=== PATIENT | male | born 1965 | race Caucasian/White ===

== ENCOUNTER 2017-05-20 17:36 | Inpatient (IN) | payer MEDICARE ==
[~2017-05-20] VITALS: Ht 170.2 cm; Wt 97.0 kg
[~2017-05-20 17:36] MED LIST: ALPR0.25 PO; PEPT262C2 CHEW; PROZ40CA PO; TYLE325T PO
[2017-05-20] MEDS ORDERED: MAGNESIUM HYDROXIDE SUSP 30 ML CUP PO PRN ×2 (18:45)
[2017-05-20] MEDS ORDERED: ONDANSETRON HCL 4 MG/2 ML VIAL IVP PRN (18:45)
[2017-05-20] MEDS ORDERED: LACTULOSE SYRUP 20 GM/30 ML CUP PO PRN ×2 (18:45)
[2017-05-20] MEDS ORDERED: SENNOSIDES 8.6 MG TAB PO PRN ×2 (18:45)
[2017-05-20] MEDS ORDERED: oxyCODONE/ACETAMINOPHEN 5 MG/325 MG TAB PO PRN (18:45)
[2017-05-20] MEDS ORDERED: SODIUM CHLORIDE 0.9% FLUSH 10 ML FLUSH IV FLUSH PRN ×2 (18:45)
[2017-05-20] MEDS ORDERED: NALOXONE HCL 0.4 MG/ML AMP IV PUSH PRN ×2 (18:45)
[2017-05-20] MEDS ORDERED: MORPHINE SULFATE 4 MG/ML INJ IV PUSH PRN ×2 (18:45)
[2017-05-20] MEDS ORDERED: PROCHLORPERAZINE 25 MG SUPP RECTAL PRN (18:45)
[2017-05-20] MEDS ORDERED: BISACODYL 10 MG SUPP RECTAL PRN ×2 (18:45)
[2017-05-20] MEDS ORDERED: ACETAMINOPHEN 325 MG TAB PO PRN (18:45)
[2017-05-20 20:00] VITALS: BP 116/70; PULSE 102; RESP 18; TEMP 101.8; O2SAT 92
[2017-05-20] MEDS ORDERED: SODIUM CHLOR 0.45% 1000 ML INJ 1,000 ML IV SCH (20:00)
[2017-05-20] MEDS: SODIUM CHLORIDE 0.9% FLUSH 10 ML FLUSH IV FLUSH SCH (20:20)
[2017-05-20] MEDS: VANCOMYCIN INJ 1,000 MG in SODIUM CHLOR 0.9% 250 ML INJ 250 ML IV SCH (20:20)
[2017-05-20] MEDS: DOCUSATE SODIUM 50 MG/SENNA 8.6 MG TAB PO SCH (20:20)
[2017-05-20 20:24] VITALS: PULSE 102
[2017-05-20] MEDS ORDERED: DOCUSATE SODIUM 50 MG/SENNA 8.6 MG TAB PO SCH (21:00)
[2017-05-20] MEDS ORDERED: SODIUM CHLORIDE 0.9% FLUSH 10 ML FLUSH IV FLUSH SCH (21:00)
[2017-05-20] MEDS: ACETAMINOPHEN 325 MG TAB PO PRN (21:26)
[2017-05-20] MEDS: oxyCODONE/ACETAMINOPHEN 10 MG/325 MG TAB PO PRN (22:11)
--- NOTE | 2017-05-20 22:14 | HHI.HP ---
[facility] Phys[facility] Non-Staff Admission Diagnosis Abdominal abscess, colitis . Diagnoses: (1) Abdominal abscess (2) Irritable bowel syndrome (3) Leukocytosis (4) Transaminitis (5) Hyponatremia Chief Complaint: Abdominal pain, diarrhea Travel History International Travel<30 Days: No Contact w/Intl Traveler <30 Da: No History of Present Illness Mr. Wagner is a pleasant 52-year-old male with a past medical history of irritable bowel syndrome who presented to the emergency room in [place] on 2016 complaining of fever, nausea, and diarrhea. CT of the abdomen and pelvis showed large abscess in the right lower quadrant with associated inflammatory changes. Abnormal bowel wall thickening involving the ascending colon and distal ileum were identified. General surgery was consulted and requested transfer to the main campus for interventional radiology percutaneous drainage as well as IV antibiotic therapy. The patient is seen in his hospital room. He tells me he thought he had a "stomach bug" for the past week. He reports fevers as high as 105 accompanied by one day of chills at the beginning, nausea throughout, no vomiting, diarrhea for 7 days with 2-3 episodes today and 5-10 episodes occurring a couple of days ago. The stool is described as watery, without any bloody appearance or melena. He denies dysuria, hematuria, shortness of breath, or chest pain. He reports severe right sided abdominal pain that is currently rated 7 out of 10 and is worse with light palpation and not relieved by anything as of yet. This pain has been going on for 7 days and has gotten progressively worse. Review of Systems Except as stated in HPI: all other systems reviewed are Neg Past Family Social History Past Medical History Irritable bowel syndrome Depression Anxiety Denies any history of hypertension, diabetes mellitus, coronary artery disease, atrial fibrillation, congestive heart failure, asthma, COPD, emphysema, liver problems such as hepatitis, kidney problems, DVTs, PEs, CVAs, seizures, or thyroid problems. . Past Surgical History Cervical fusion . Reported Medications Reported Meds & Active Scripts Active Reported Pepto-Bismol (Bismuth Subsalicylate) 262 Mg Chew 524 Mg CHEW PRN Tylenol (Acetaminophen) 325 Mg Tab 325 Mg PO ONCE Alprazolam 0.25 Mg Tab 0.25 Mg PO Q4H PRN Prozac (Fluoxetine HCl) 40 Mg Cap 40 Mg PO DAILY . Allergies: Coded Allergies: No Known Allergies (Unverified , 05/20/17) Active Ordered Medications Current Medications Vancomycin HCl 1000 mg/Sodium Chloride 250 ml @ 250 mls/hr Q12H IV Last administered on 05/20/17 20:20; Start 05/20/17 at 21:00 Piperacillin Sod/ Tazobactam Sod 100 ml @ 200 mls/hr Q6H IV ; Start 05/21/17 at 00:00 Sodium Chloride (NS Flush) 2 ml UNSCH PRN IV FLUSH FLUSH AFTER USING IV ACCESS ; Start 05/20/17 at 18:45; Status UNV Sodium Chloride (NS Flush) 2 ml BID IV FLUSH ; Start 05/20/17 at 21:00; Status UNV Naloxone HCl (Narcan Inj) 0.4 mg UNSCH PRN IV PUSH SEE LABEL COMMENTS; Start 05/20/17 at 18:45 Senna/Docusate Sodium (Karo-Colace) 1 tab BID PO ; Start 05/20/17 at 21:00; Status UNV Magnesium Hydroxide (Milk Of Magnesia Liq) 30 ml Q12H PRN PO MILD - MODERATE CONSTIPATION; Start 05/20/17 at 18:45; Status UNV Sennosides (Senokot) 17.2 mg Q12H PRN PO MODERATE - SEVERE CONSTIPATION; Start 05/20/17 at 18:45; Status UNV Bisacodyl (Dulcolax Supp) 10 mg DAILY PRN RECTAL SEVERE CONSITIPATION; Start 05/20/17 at 18:45 Lactulose (Lactulose Liq) 30 ml DAILY PRN PO SEVERE CONSITIPATION; Start at 18:45 Sodium Chloride 1,000 ml @ 75 mls/hr [id number] IV Last administered on 20:20; Start 05/20/17 at 20:00 Sodium Chloride (NS Flush) 2 ml UNSCH PRN IV FLUSH FLUSH AFTER USING IV ACCESS ; Start 05/20/17 at 18:45 Sodium Chloride (NS Flush) 2 ml BID IV FLUSH Last administered on 05/20/17 20: 20; Start 05/20/17 at 21:00 Acetaminophen (Tylenol) 650 mg Q4H PRN PO TEMP > 100.4 Last administered on 21:26; Start 05/20/17 at 18:45 Ondansetron HCl (Zofran Inj) 4 mg Q6H PRN IVP NAUSEA OR VOMITING Last administered on 05/20/17 22:12; Start 05/20/17 at 18:45 Prochlorperazine (Compazine Supp) 25 mg Q12H PRN RECTAL NAUSEA OR VOMITING; Start 05/20/17 at 18:45 Acetaminophen (Tylenol) 650 mg Q6H PRN PO PAIN SCALE 1 TO 2; Start 05/20/17 at 18:45 Oxycodone/ Acetaminophen (Percocet 5-325 Mg) 1 tab Q6H PRN PO PAIN SCALE 3 TO 5; Start 05/20/17 at 18:45 Oxycodone/ Acetaminophen (Percocet 10-325 Mg) 1 tab Q6H PRN PO PAIN SCALE 6 TO 10 Last administered on 05/20/17 22:11; Start 05/20/17 at 18:45 Morphine Sulfate (Morphine Inj) 2 mg Q3H PRN IV PUSH Pain 3-5; if unable to take PO; Start 05/20/17 at 18:45 Morphine Sulfate (Morphine Inj) 4 mg Q3H PRN IV PUSH Pain 6-10;if unable to take PO; Start 05/20/17 at 18:45 Naloxone HCl (Narcan Inj) 0.4 mg UNSCH PRN IV PUSH SEE LABEL COMMENTS; Start 05/20/17 at 18:45 Senna/Docusate Sodium (Karo-Colace) 1 tab BID PO ; Start 05/20/17 at 21:00 Magnesium Hydroxide (Milk Of Magnesia Liq) 30 ml Q12H PRN PO MILD - MODERATE CONSTIPATION; Start 05/20/17 at 18:45 Sennosides (Senokot) 17.2 mg Q12H PRN PO MODERATE - SEVERE CONSTIPATION; Start 05/20/17 at 18:45 Bisacodyl (Dulcolax Supp) 10 mg DAILY PRN RECTAL SEVERE CONSITIPATION; Start 05/20/17 at 18:45; Status UNV Lactulose (Lactulose Liq) 30 ml DAILY PRN PO SEVERE CONSITIPATION; Start at 18:45; Status UNV Alprazolam (Xanax) 0.25 mg Q4H PRN PO ANXIETY; Start 05/20/17 at 19:00 Fluoxetine HCl (PROzac) 40 mg DAILY PO ; Start 05/21/17 at 09:00 Diphenhydramine HCl (Benadryl) 50 mg HS PRN PO INSOMNIA; Start 05/20/17 at 22: 15 . Family History Mother with unknown type of cancer and heart problems, age 54, father's medical history is unknown, sister named Naomi with COPD, and a maternal grandmother also with an unknown type of cancer. . Social History Tobacco: Smoked from the age of 13 or 14 until the age of 22. Alcohol: Occasional social, denies daily use Illicit Drugs: Denies . Physical Exam Vital Signs Vital Signs Date Time Temp Pulse Resp B/P (MAP) Pulse Ox O2 Delivery O2 Flow Rate FiO2 05/20/17 20:24 102 05/20/17 20:00 101.8 18 116/70 (85) 92 Physical Exam GENERAL: This is a well-nourished, well-developed patient, in no apparent distress. SKIN: No rashes, ecchymoses or lesions. Cool and dry. HEAD: Atraumatic. Normocephalic. EYES: No scleral icterus. No injection or drainage. ENT: Nose without bleeding, purulent drainage. NECK: Trachea midline. No JVD or lymphadenopathy. CARDIOVASCULAR: Regular rate and rhythm without murmurs, gallops, or rubs. RESPIRATORY: Clear to auscultation. Breath sounds equal bilaterally. No wheezes , rales, or rhonchi. GASTROINTESTINAL: Normal bowel sounds. Abdomen soft, nondistended. No guarding. Abdomen tender to right upper and lower with light palpation. MUSCULOSKELETAL: Extremities without clubbing, cyanosis, or edema. No calf tenderness. NEUROLOGICAL: Awake and alert. Motor and sensory grossly within normal limits. Normal speech. . Laboratory From [place] ER visit: Laboratory Tests Test 05/20/17 14:09 White Blood Count 17.8 TH/MM3 Red Blood Count 3.99 MIL/MM3 Hemoglobin 12.4 GM/DL Hematocrit 36.1 % Mean Corpuscular Volume 90.5 FL Mean Corpuscular Hemoglobin 31.1 PG Mean Corpuscular Hemoglobin Concent 34.3 % Red Cell Distribution Width 12.8 % Platelet Count 505 TH/MM3 Mean Platelet Volume 8.5 FL Neutrophils (%) (Auto) 77.1 % Lymphocytes (%) (Auto) 10.6 % Monocytes (%) (Auto) 10.8 % Eosinophils (%) (Auto) 0.1 % Basophils (%) (Auto) 0.2 % Neutrophils # (Auto) 13.7 TH/MM3 Lymphocytes # (Auto) 1.9 TH/MM3 Monocytes # (Auto) 1.9 TH/MM3 Eosinophils # (Auto) 0.0 TH/MM3 Basophils # (Auto) 0.0 TH/MM3 CBC Comment AUTO DIFF Differential Total Cells Counted 100 Neutrophils % (Manual) 74 % Band Neutrophils % 7 % Lymphocytes % 10 % Monocytes % 9 % Neutrophils # (Manual) 14.4 TH/MM3 Differential Comment FINAL DIFF MANUAL Toxic Granulation 1+ Dohle Bodies PRESENT Platelet Estimate HIGH Platelet Morphology Comment NORMAL Red Cell Morphology Comment NORMAL Blood Urea Nitrogen 13 MG/DL Creatinine 1.10 MG/DL Random Glucose 102 MG/DL Total Protein 8.1 GM/DL Albumin 2.8 GM/DL Calcium Level 9.0 MG/DL Alkaline Phosphatase 135 U/L Aspartate Amino Transf (AST/SGOT) 88 U/L Alanine Aminotransferase (ALT/SGPT) 152 U/L Total Bilirubin 0.5 MG/DL Sodium Level 132 MEQ/L Potassium Level 3.8 MEQ/L Chloride Level 94 MEQ/L Carbon Dioxide Level 28.0 MEQ/L Anion Gap 10 MEQ/L Estimat Glomerular Filtration Rate 70 ML/MIN Lipase 111 U/L Imaging From [place] ER visit: 05/20/17: CT of the abdomen and pelvis showed large abscess in the right lower quadrant with associated inflammatory changes. Abnormal bowel wall thickening involving the ascending colon and distal ileum were identified. . Caprini VTE Risk Assessment Caprini VTE Risk Assessment: Mod/High Risk (score >= 2) Caprini Risk Assessment Model Point Value = 1 Point Value = 2 Point Value = 3 Point Value = 5 Age 41-60 Minor surgery BMI > 25 kg/m2 Swollen legs Varicose veins or History of unexplained or recurrent spontaneous Oral contraceptives or hormone replacement Sepsis (< 1 month) Serious lung disease, including pneumonia (< 1 month) Abnormal pulmonary function Acute myocardial infarction Congestive heart failure (< 1 month) History of inflammatory bowel disease Medical patient at bed rest Age 61-74 Arthroscopic surgery Major open surgery (> 45 min) Laparoscopic surgery (> 45 min) Malignancy Confined to bed (> 72 hours) Immobilizing plaster cast Central venous access Age >= 75 History of VTE Family history of VTE Factor V Leiden Prothrombin [id number] Lupus anticoagulant Anticardiolipin antibodies Elevated serum homocysteine Heparin-induced thrombocytopenia Other congenital or acquired thrombophilia Stroke (< 1 month) Elective arthroplasty Hip, pelvis, or leg fracture Acute spinal cord injury (< 1 month) Prophylaxis Regimen Total Risk Factor Score Risk Level Prophylaxis Regimen 0-1 Low Early ambulation 2 Moderate Order ONE of the following: *Sequential Compression Device (SCD) *Heparin 5000 units SQ BID 3-4 Higher Order ONE of the following medications: *Heparin 5000 units SQ TID *Enoxaparin/Lovenox 40 mg SQ daily (WT < 150 kg, CrCl > 30 mL/min) *Enoxaparin/Lovenox 30 mg SQ daily (WT < 150 kg, CrCl > 10-29 mL/min) *Enoxaparin/Lovenox 30 mg SQ BID (WT < 150 kg, CrCl > 30 mL/min) AND/OR *Sequential Compression Device (SCD) 5 or more Highest Order ONE of the following medications: *Heparin 5000 units SQ TID (Preferred with Epidurals) *Enoxaparin/Lovenox 40 mg SQ daily (WT < 150 kg, CrCl > 30 mL/min) *Enoxaparin/Lovenox 30 mg SQ daily (WT < 150 kg, CrCl > 10-29 mL/min) *Enoxaparin/Lovenox 30 mg SQ BID (WT < 150 kg, CrCl > 30 mL/min) AND *Sequential Compression Device (SCD) Assessment and Plan Problem List: (1) Abdominal abscess ICD Code: K65.1 - Peritoneal abscess (2) Leukocytosis ICD Code: D72.829 - Elevated white blood cell count, unspecified (3) Irritable bowel syndrome ICD Code: K58.9 - Irritable bowel syndrome without diarrhea (4) Hyponatremia ICD Code: E87.1 - Hypo-osmolality and hyponatremia (5) Transaminitis ICD Code: R74.0 - Nonspecific elevation of levels of transaminase and lactic acid dehydrogenase [LDH] Assessment and Plan 52-year-old male with a history of irritable bowel syndrome who presents to the ED and [facility] a on 05/20/2017 for evaluation of abdominal pain with fever, nausea, and diarrhea and is transferred to the main hospital for management of abdominal abscess. Abdominal abscess Sepsis - Leukocytosis with bandemia secondary to infection, tachycardia, fevers History of irritable bowel syndrome - Antibiotics: Zosyn 4.5 g IV every 6 hours and vancomycin IV with pharmacy consultation for therapeutic monitoring and dosing - Consult general surgery - assistance appreciated - Consult invasive radiology department - Acetaminophen 650 mg every 4 hours by mouth when necessary fever greater than 100.4 with limit of 3000 mg per 24-hour period - Zofran 4 mg IV every 6 hours when necessary nausea or vomiting - Morphine 2-4 mg IV every 3 hours as needed for pain if unable to take by mouth - Percocet p.o. PRN pain - will check lactic acid Hyponatremia - Sodium 132 on admission with no prior labs for comparison - Replace with IV fluids normal saline at 75 cc per hour - Recheck CMP in a.m. and follow sodium level results Transaminitis - AST 88 - ALT 152 - recheck CMP in a.m. and follow results - consider hepatitis panel if persists DVT prophylaxis - SCDs/TEDs . Discussed Condition With Dr. Conte, patient, and RN Physician Certification 2 Midnight Certification Type: Admission for Inpatient Services Order for Inpatient Services The services are ordered in accordance with Medicare regulations or non- Medicare payer requirements, as applicable. In the case of services not specified as inpatient-only, they are appropriately provided as inpatient services in accordance with the 2-midnight benchmark. Estimated LOS (days): 3 days is the estimated time the patient will need to remain in the hospital, assuming treatment plan goals are met and no additional complications. Post-Hospital Plan: Home Problem Qualifiers (1) Irritable bowel syndrome: Qualified Codes: K58.0 - Irritable bowel syndrome with diarrhea (2) Leukocytosis: Qualified Codes: D72.825 - Bandemia Mirian Bearden May 20, 2017 22:14
[2017-05-20] MEDS ORDERED: diphenhydrAMINE HCL 50 MG CAP PO PRN (22:15)
[2017-05-21] VITALS (11 sets, daily range): BP systolic 94–115; BP diastolic 51–68; PULSE 69–106; RESP 16–18; TEMP 96.5–101.1; O2SAT 93–100
[2017-05-21] MEDS: SODIUM CHLOR 0.9% 1000 ML INJ 1,000 ML IV SCH ×3 (00:01→19:57)
[2017-05-21] MEDS: PIPERACIL-TAZO 4.5 GM PREMIX 100 ML IV SCH ×4 (00:01→17:21)
[2017-05-21] MEDS: ACETAMINOPHEN 325 MG TAB PO PRN (06:27)
[2017-05-21] MEDS: VANCOMYCIN INJ 1,000 MG in SODIUM CHLOR 0.9% 250 ML INJ 250 ML IV SCH ×2 (08:29→20:00)
[2017-05-21] MEDS: FLUoxetine HCL 20 MG CAP PO SCH (08:30)
[2017-05-21] MEDS: DOCUSATE SODIUM 50 MG/SENNA 8.6 MG TAB PO SCH ×2 (08:32→19:59)
[2017-05-21] MEDS: SODIUM CHLORIDE 0.9% FLUSH 10 ML FLUSH IV FLUSH SCH ×2 (08:32→19:59)
[2017-05-21 08:36] LABS: AUTOMATED NEUTROPHIL # 16.8 TH/MM3 (1.8-7.7); BASOPHIL % 0.2 % (0.0-2.0); EOSINOPHIL % 0.1 % (0.0-4.0); HEMATOCRIT 34.7 % (39.0-51.0); LYMPH % 8.7 % (9.0-44.0); LYMPHOCYTE # 1.8 TH/MM3 (1.0-4.8); MEAN CELL VOLUME 90.8 FL (80.0-100.0); MEAN CORPUSCULAR HGB CONC 34.1 % (32.0-36.0); MONO % 11.5 % (0.0-8.0); NEUT % 79.5 % (16.0-70.0); PLATELET COUNT 485 TH/MM3 (150-450); RED BLOOD COUNT 3.82 MIL/MM3 (4.50-5.90); RED CELL DISTRIBUTION WIDTH 13.2 % (11.6-17.2); WHITE BLOOD COUNT 21.1 TH/MM3 (4.0-11.0)
[2017-05-21 08:38] LABS: HEMO FLAGS AUTO DIFF
[2017-05-21 08:39] LABS: APTT (PATIENT) 31.4 SEC (24.3-30.1); INTERNATIONAL NORMALIZED RATIO 1.2 RATIO; PROTHROMBIN TIME - PATIENT 13.1 SEC (9.8-11.6)
[2017-05-21 08:51] LABS: ANION GAP 10 MEQ/L (5-15); AST (GOT) 80 U/L (15-37); BICARBONATE 24.5 MEQ/L (21.0-32.0); BLOOD UREA NITROGEN 15 MG/DL (7-18); CHLORIDE 99 MEQ/L (98-107); GLOMERULAR FILTRATION RATE 71 ML/MIN (>89); MAGNESIUM 2.6 MG/DL (1.5-2.5); POTASSIUM 3.4 MEQ/L (3.5-5.1); SODIUM (NA) 133 MEQ/L (136-145)
[2017-05-21 08:52] LABS: ALT (GPT) 146 U/L (12-78)
[2017-05-21 09:00] LABS: ALKALINE PHOSPHATASE 135 U/L (45-117); FREE T4 1.61 NG/DL (0.76-1.46); TOTAL BILIRUBIN ADULT 0.7 MG/DL (0.2-1.0)
[2017-05-21 09:09] LABS: DOHLE BODIES PRESENT (NONE SEEN); PLATELET ESTIMATE SMEAR HIGH (NORMAL); PLATELET MORPHOLOGY NORMAL (NORMAL); SCAN/DIFF AUTO DIFF CONFIRMED
[2017-05-21 10:06] LABS: HEMOGLOBIN A1b 1.8 %; HEMOGLOBIN Ao 85.1 %; HEMOGLOBIN LA1C 2.1 %; HEMOGLOBIN P3 3.9 %
--- NOTE | 2017-05-21 11:00 | PD.CONS ---
cc: Alan Hankins MD HPI Service General Surgery Consult Requested By Mirian GIPSON Reason for Consult Intra abdominal abscess Primary Care Physician Non-Staff History of Present Illness This is a 52 year old male with a past medical history of irritable bowel syndrome, depression and anxiety. The patient developed "flu-like" symptoms including nausea, vomiting, diarrhea, chills and fevers for seven days. The patient's temperature max at home was 105. The patient does report associated RLQ pain. The patient denies any sick contract. The patient denies any recent travel. The patient presented to the [facility] ED and a CT abdomen/pelvis was completed. The patient was found to have RLQ inflammatory changes and an intra- abdominal abscess; likely related to perforated appendicitis. A General Surgery consultation has been requested for evaluation of intra-abdominal abscess. Review of Systems Constitutional: COMPLAINS OF: Diaphoretic episodes, Fever, Chills, Change in appetite Endocrine: DENIES: Polydipsia, Polyuria, Polyphagia Eyes: DENIES: Diplopia Respiratory: DENIES: Apneas, Cough Cardiovascular: DENIES: Chest pain Gastrointestinal: COMPLAINS OF: Abdominal pain, Diarrhea, Nausea, Vomiting Genitourinary: DENIES: Urgency Musculoskeletal: DENIES: Stiffness Integumentary: DENIES: Abnormal pigmentation Hematologic/lymphatic: DENIES: Bruising Immunologic/allergic: DENIES: Eczema Neurologic: DENIES: Abnormal gait, Headache Psychiatric: DENIES: Confusion, Mood changes, Depression Past Family Social History Past Medical History Irritable bowel syndrome Anxiety Depression Past Surgical History Cervical fusion Allergies: Coded Allergies: No Known Allergies (Unverified , 05/20/17) Active Ordered Medications Current Medications Medications (Trade) Dose Ordered Sig/Ricardo Route Start Time Stop Time Status Last Admin Vancomycin HCl 1000 mg/Sodium Chloride 250 ml @ 250 mls/hr Q12H IV 05/20/17 21:00 05/21/17 08:29 Piperacillin Sod/ Tazobactam Sod 100 ml @ 200 mls/hr Q6H IV 05/21/17 00:00 05/21/17 05:38 (Narcan Inj) 0.4 mg UNSCH PRN IV PUSH 05/20/17 18:45 (Dulcolax Supp) 10 mg DAILY PRN RECTAL 05/20/17 18:45 (Lactulose Liq) 30 ml DAILY PRN PO 05/20/17 18:45 (NS Flush) 2 ml UNSCH PRN IV FLUSH 05/20/17 18:45 (NS Flush) 2 ml BID IV FLUSH 05/20/17 21:00 05/20/17 20:20 (Tylenol) 650 mg Q4H PRN PO 05/20/17 18:45 05/21/17 06:27 (Zofran Inj) 4 mg Q6H PRN IVP 05/20/17 18:45 05/20/17 22:12 (Compazine Supp) 25 mg Q12H PRN RECTAL 05/20/17 18:45 (Tylenol) 650 mg Q6H PRN PO 05/20/17 18:45 (Percocet 5-325 Mg) 1 tab Q6H PRN PO 05/20/17 18:45 (Percocet 10-325 Mg) 1 tab Q6H PRN PO 05/20/17 18:45 05/20/17 22:11 (Morphine Inj) 2 mg Q3H PRN IV PUSH 05/20/17 18:45 (Morphine Inj) 4 mg Q3H PRN IV PUSH 05/20/17 18:45 (Narcan Inj) 0.4 mg UNSCH PRN IV PUSH 05/20/17 18:45 (Karo-Colace) 1 tab BID PO 05/20/17 21:00 (Milk Of Magnesia Liq) 30 ml Q12H PRN PO 05/20/17 18:45 (Senokot) 17.2 mg Q12H PRN PO 05/20/17 18:45 (Xanax) 0.25 mg Q4H PRN PO 05/20/17 19:00 (PROzac) 40 mg DAILY PO 05/21/17 09:00 05/21/17 08:30 (Benadryl) 50 mg HS PRN PO 05/20/17 22:15 Sodium Chloride 1,000 ml @ 75 mls/hr [id number] IV 05/20/17 23:30 05/21/17 00:01 Family History Non contributory Social History Denies current tobacco use + ETOH use; socially; not daily Denies illicit drug use Physical Exam Vital Signs Vital Signs Date Time Temp Pulse Resp B/P (MAP) Pulse Ox O2 Delivery O2 Flow Rate FiO2 05/21/17 08:00 99.7 91 18 94/63 (73) 93 05/21/17 07:40 106 05/21/17 04:38 101.1 103 18 115/59 (77) 95 05/21/17 00:32 99.3 86 18 97/51 (66) 94 05/20/17 20:24 102 05/20/17 20:00 101.8 102 18 116/70 (85) 92 Physical Exam GENERAL: Pleasant 52 year old male resting in bed in no acute distress. SKIN: Warm and dry. HEAD: Atraumatic. Normocephalic. EYES: Pupils equal and round. No scleral icterus. No injection or drainage. ENT: No nasal bleeding or discharge. Mucous membranes pink and moist. NECK: Trachea midline. CARDIOVASCULAR: Regular rate and rhythm. RESPIRATORY: No accessory muscle use. Clear to auscultation. Breath sounds equal bilaterally. GASTROINTESTINAL: Abdomen soft, nondistended. Tenderness with palpation in RLQ. No visible scars or hernias on abdomen. MUSCULOSKELETAL: Extremities without clubbing, cyanosis, or edema. No obvious deformities. NEUROLOGICAL: Awake and alert. No obvious cranial nerve deficits. Motor grossly within normal limits. Five out of 5 muscle strength in the arms and legs. Normal speech. PSYCHIATRIC: Appropriate mood and affect; insight and judgment normal. Laboratory Laboratory Tests Test 05/21/17 07:54 White Blood Count 21.1 Red Blood Count 3.82 Hemoglobin 11.8 Hematocrit 34.7 Mean Corpuscular Volume 90.8 Mean Corpuscular Hemoglobin 31.0 Mean Corpuscular Hemoglobin Concent 34.1 Red Cell Distribution Width 13.2 Platelet Count 485 Mean Platelet Volume 6.7 Neutrophils (%) (Auto) 79.5 Lymphocytes (%) (Auto) 8.7 Monocytes (%) (Auto) 11.5 Eosinophils (%) (Auto) 0.1 Basophils (%) (Auto) 0.2 Neutrophils # (Auto) 16.8 Lymphocytes # (Auto) 1.8 Monocytes # (Auto) 2.4 Eosinophils # (Auto) 0.0 Basophils # (Auto) 0.0 CBC Comment AUTO DIFF Differential Comment AUTO DIFF CONFIRMED Dohle Bodies PRESENT Platelet Estimate HIGH Platelet Morphology Comment NORMAL Red Cell Morphology Comment NORMAL Prothrombin Time 13.1 Prothromb Time International Ratio 1.2 Activated Partial Thromboplast Time 31.4 Blood Urea Nitrogen 15 Creatinine 1.08 Random Glucose 99 Total Protein 7.4 Albumin 2.6 Calcium Level 8.7 Phosphorus Level 3.9 Magnesium Level 2.6 Alkaline Phosphatase 135 Aspartate Amino Transf (AST/SGOT) 80 Alanine Aminotransferase (ALT/SGPT) 146 Total Bilirubin 0.7 Sodium Level 133 Potassium Level 3.4 Chloride Level 99 Carbon Dioxide Level 24.5 Anion Gap 10 Estimat Glomerular Filtration Rate 71 Hemoglobin A1c 5.5 Free Thyroxine 1.61 Thyroid Stimulating Hormone 3rd Gen 1.190 Result Diagram: 05/21/17 0754 05/21/17 0754 Assessment and Plan Assessment and Plan 52 year old male with intra-abdominal abscess; ?? related to perforated appendicitis -Plan for IR drainage today -NPO; start clears after procedure -Monitor WBC/Fevers -Continue Zosyn -IVF -Will likely need interval appendectomy; timing to be determined -Thank you for this consult; We will continue to follow Discussed Condition With Dr. Hankins Julissa Wagner Attending Statement I personally evaluated this patient this evening. I saw his drain which has been placed and is draining light brown purulent drainage. I discussed his condition and plans for care in detail. Acutely abx and drainage are indicated. The differential of perforated appendicitis, diverticulitis, and tumor perforation were discussed. He has never had a colonoscopy and should have this done prior to any surgery, to evaluate for etiology outside of appendicitis. He and his agree. We will follow along peripherally. The exam, history, and the medical decision-making described in the above note were completed with the assistance of the mid-level provider. I reviewed and agree with the findings presented. I attest that I had a [id number] encounter with the patient on the same day, and personally performed and documented my assessment and findings in the medical record. Alena Hurtado May 21, 2017 11:00 Alan Hankins MD May 21, 2017 18:09
[2017-05-21] MEDS ORDERED: MIDAZOLAM HCL 5 MG/5 ML VIAL ONE (13:24)
[2017-05-21] MEDS ORDERED: LIDOCAINE HCL 1% 20 ML VIAL ONE (13:30)
--- NOTE | 2017-05-21 15:37 | PD.RAD ---
Post CT Procedure Prog Note Pre Procedure Diagnosis: (1) Abdominal abscess Post Procedure Diagnosis: (1) Abdominal abscess Procedure Date: May 21, 2017 Supervising Radiologist: Andrade Breaux Proceduralist/Assist: lizzie lino Estimated blood loss: none Anesthesia: Conscious Sedation Plan of Activity Patient to Unit: [facility] Patient Condition: Good See PACS Report for procedural detail/treatment Andrade Breaux MD May 21, 2017 15:36
--- NOTE | 2017-05-21 16:07 | RADRPT ---
EXAM DATE/TIME: 05/21/2017 14:54 [facility] COMPARISON: No previous studies available for comparison. INDICATIONS : Abdominal abscess. SEDATION TIME: 30 MEDICATION(S): 1.) 5 mg midazolam (Versed) IV 2.) 250 mcg fentanyl (Sublimaze) IV DEVICE(S): 1.) 14 Fr catheter FLUID: Total volume of 20 cc of cloudy, yellow fluid was removed. Fluid was discarded. MEDICAL HISTORY : Irritable bowel syndrome. SURGICAL HISTORY : neck. ENCOUNTER: Initial ACUITY: 1 day PAIN SCORE: 0/10 LOCATION: Right lower quadrant PROCEDURE: 1.) Conscious sedation with continuous EKG and oximetry monitoring. 2.) EKG and oximetry remained stable throughout the procedure. PROCEDURE : 1. CT guided drainage of the right lower quadrant 2. Conscious sedation with continuous EKG and oximetry monitoring. The risks, benefits and alternatives to the procedure were explained and verbal and written consent w as obtained. Using automated exposure control and adjustment of the mA and/or kV according to patient size, radiation dose was kept as low as reasonably achievable to obtain optimal diagnostic quality i mages. The site was prepped in sterile fashion. Full sterile technique was used, including cap, ma sk, sterile gloves and gown and a large sterile sheet. Hand hygiene and 2% chlorhexidine and/or beta dine/alcohol prep was utilized per protocol for cutaneous antisepsis. The skin and subcutaneous tiss ues were infiltrated with local anesthetic solution. DICOM format image data is available electronic ally for review and comparison. Using CT guidance the prescribed site was localized. Drainage was performed using the prescribed cat heter The patient tolerated the procedure well and there were no complications. Conscious sedation was per formed with the prescribed dosages and duration as above in the presence of an independent trained ra diology nurse to assist in the monitoring of the patient. EKG and oximetry remained stable throughou t the procedure. The patient tolerated the procedure well and there were no complications. The patient was sent to pos t anesthesia recovery in stable condition. CONCLUSION: Uncomplicated CT guided drainage of the abscess which appears to have decreased in size. 14 Wolof ca theter placed. There is extensive inflammation and possibility of appendicitis remains high in the di fferential. Andrade Breaux MD on May 21, 2017 at 16:00 Board Certified Radiologist. This report was verified electronically.
--- NOTE | 2017-05-21 17:54 | HHI.PR ---
Subjective Remarks Mr. Wagner is a pleasant 52-year-old male with a past medical history of irritable bowel syndrome who presented to the emergency room in [place] on 2016 complaining of fever, nausea, and diarrhea. CT of the abdomen and pelvis showed large abscess in the right lower quadrant with associated inflammatory changes. Abnormal bowel wall thickening involving the ascending colon and distal ileum were identified. General surgery was consulted and requested transfer to the main campus for interventional radiology percutaneous drainage as well as IV antibiotic therapy. The patient is seen in his hospital room. He tells me he thought he had a "stomach bug" for the past week. He reports fevers as high as 105 accompanied by one day of chills at the beginning, nausea throughout, no vomiting, diarrhea for 7 days with 2-3 episodes today and 5-10 episodes occurring a couple of days ago. The stool is described as watery, without any bloody appearance or melena. He denies dysuria, hematuria, shortness of breath, or chest pain. He reports severe right sided abdominal pain that is currently rated 7 out of 10 and is worse with light palpation and not relieved by anything as of yet. This pain has been going on for 7 days and has gotten progressively worse. 10-9 SEEN BY GENERAL SURGERY WELL INTERVENTIONAL RADIOLOGY DRAIN PLACED TODAY BY IR Objective Vitals Vital Signs Date Time Temp Pulse Resp B/P (MAP) Pulse Ox O2 Delivery O2 Flow Rate FiO2 05/21/17 17:00 96.5 83 17 97/61 (73) 96 05/21/17 16:15 83 16 115/68 (84) 93 05/21/17 16:00 78 16 98/64 (75) 94 05/21/17 15:45 98.0 77 16 104/67 (79) 94 05/21/17 12:00 98.3 72 17 101/64 (76) 96 05/21/17 08:00 99.7 91 18 94/63 (73) 93 05/21/17 07:40 106 05/21/17 04:38 101.1 103 18 115/59 (77) 95 05/21/17 00:32 99.3 86 18 97/51 (66) 94 05/20/17 20:24 102 05/20/17 20:00 101.8 102 18 116/70 (85) 92 I/O 1005/20/17 05/20/17 05/21/17 05/21/17 05/21/17 07:00 15:00 23:00 07:00 15:00 23:00 Intake Total 1125 ml 350 ml 459 ml Balance 1125 ml 350 ml 459 ml Intake IV Total 1125 ml 350 ml 459 ml # Voids 4 # Bowel Movements 2 Result Diagram: 05/21/17 0754 05/21/17 0754 Other Results Laboratory Tests Test 05/21/17 07:54 White Blood Count 21.1 TH/MM3 Red Blood Count 3.82 MIL/MM3 Hemoglobin 11.8 GM/DL Hematocrit 34.7 % Mean Corpuscular Volume 90.8 FL Mean Corpuscular Hemoglobin 31.0 PG Mean Corpuscular Hemoglobin Concent 34.1 % Red Cell Distribution Width 13.2 % Platelet Count 485 TH/MM3 Mean Platelet Volume 6.7 FL Neutrophils (%) (Auto) 79.5 % Lymphocytes (%) (Auto) 8.7 % Monocytes (%) (Auto) 11.5 % Eosinophils (%) (Auto) 0.1 % Basophils (%) (Auto) 0.2 % Neutrophils # (Auto) 16.8 TH/MM3 Lymphocytes # (Auto) 1.8 TH/MM3 Monocytes # (Auto) 2.4 TH/MM3 Eosinophils # (Auto) 0.0 TH/MM3 Basophils # (Auto) 0.0 TH/MM3 CBC Comment AUTO DIFF Differential Comment AUTO DIFF CONFIRMED Dohle Bodies PRESENT Platelet Estimate HIGH Platelet Morphology Comment NORMAL Red Cell Morphology Comment NORMAL Prothrombin Time 13.1 SEC Prothromb Time International Ratio 1.2 RATIO Activated Partial Thromboplast Time 31.4 SEC Blood Urea Nitrogen 15 MG/DL Creatinine 1.08 MG/DL Random Glucose 99 MG/DL Total Protein 7.4 GM/DL Albumin 2.6 GM/DL Calcium Level 8.7 MG/DL Phosphorus Level 3.9 MG/DL Magnesium Level 2.6 MG/DL Alkaline Phosphatase 135 U/L Aspartate Amino Transf (AST/SGOT) 80 U/L Alanine Aminotransferase (ALT/SGPT) 146 U/L Total Bilirubin 0.7 MG/DL Sodium Level 133 MEQ/L Potassium Level 3.4 MEQ/L Chloride Level 99 MEQ/L Carbon Dioxide Level 24.5 MEQ/L Anion Gap 10 MEQ/L Estimat Glomerular Filtration Rate 71 ML/MIN Hemoglobin A1c 5.5 % Free Thyroxine 1.61 NG/DL Thyroid Stimulating Hormone 3rd Gen 1.190 uIU/ML Imaging Last 72 hours Impressions Abscess Drainage CT 05/21/17 0000 Signed Impressions: Service Date/Time: Sunday, May 21, 2017 14:54 - CONCLUSION: Uncomplicated CT guided drainage of the abscess which appears to have decreased in size. 14 Bengali catheter placed. There is extensive inflammation and possibility of appendicitis remains high in the differential. Andrade Breaux MD CT Abd/Pel W IV Contrast(Rout) Signed EXAM DATE/TIME: 05/20/2017 16:14 [facility] COMPARISON: No previous studies available for comparison. INDICATIONS : Lower right abdomen pain. IV CONTRAST: 96 cc Omnipaque 350 (iohexol) IV ORAL CONTRAST: Prescribed oral contrast ingested. RADIATION DOSE: 9.07 CTDIvol (mGy) MEDICAL HISTORY : None SURGICAL HISTORY : Fusion, cervical. ENCOUNTER: Initial ACUITY: 1 day PAIN SCALE: 6/10 LOCATION: Right flank TECHNIQUE: Volumetric scanning of the abdomen and pelvis was performed. Using automated exposure control and adjustment of the mA and/or kV according to patient size, radiation dose was kept as low as reasonably achievable to obtain optimal diagnostic quality images. DICOM format image data is available electronically for review and comparison. FINDINGS: The spleen, pancreas, liver, gallbladder, urinary bladder and prostate are unremarkable. There is diverticulosis of the sigmoid colon. There is circumferential bowel wall thickening involving the proximal transverse colon, and ascending colon. The cecum demonstrates marked circumferential wall thickening, and there is abnormal circumferential bowel wall thickening of the terminal ileum identified. There is significant adjacent inflammatory stranding. In the right lower quadrant, is a irregular rim-enhancing air and fluid collection best seen on axial image 67 measuring 10.5 x 7.1 cm in transverse and AP and characteristic of an abscess. There are a few subcentimeter lymph nodes in this region. A normal-appearing appendix is not visualized. Given the location, the most likely diagnosis would be perforated appendicitis with abscess formation. Abscess formation related to enteritis in the setting of inflammatory bowel disease or colitis are also differential diagnostic considerations. Lung bases are clear. The osseous structures are intact. CONCLUSION: 1. There is a large abscess in the right lower quadrant with associated inflammatory changes. Abnormal bowel wall thickening involving the ascending colon and distal ileum identified. Perforated appendicitis, or bowel perforation with abscess formation the setting of enteritis or colitis given the regional bowel inflammatory changes are differential diagnostic considerations. Objective Remarks GENERAL: This is a well-nourished, well-developed patient, in no apparent distress. SKIN: No rashes, ecchymoses or lesions. Cool and dry. HEAD: Atraumatic. Normocephalic. EYES: No scleral icterus. No injection or drainage. Extraocular muscles intact ENT: Nose without bleeding, purulent drainage. Tongue is midline or mucosa is moist NECK: Trachea midline. No JVD or lymphadenopathy. Supple CARDIOVASCULAR: Regular rate and rhythm without murmurs, gallops, or rubs. S1- S2 no S3 or S4 no heave or thrill or rub RESPIRATORY: Clear to auscultation. Breath sounds equal bilaterally. No wheezes , rales, or rhonchi. GASTROINTESTINAL: Normal bowel sounds. Abdomen soft, nondistended. No guarding. Abdomen tender to right upper and lower with light palpation. Has pain in the right lower quadrant has to drain in place MUSCULOSKELETAL: Extremities without clubbing, cyanosis, or edema. No calf tenderness. NEUROLOGICAL: Awake and alert. Motor and sensory grossly within normal limits. Normal speech. Insight and judgment is good; mood and behaviors appropriate . Procedures CT Assisted Abscess Drain Signed EXAM DATE/TIME: 05/21/2017 14:54 [facility] COMPARISON: No previous studies available for comparison. INDICATIONS : Abdominal abscess. SEDATION TIME: 30 MEDICATION(S): 1.) 5 mg midazolam (Versed) IV 2.) 250 mcg fentanyl (Sublimaze) IV DEVICE(S): 1.) 14 Fr catheter FLUID: Total volume of 20 cc of cloudy, yellow fluid was removed. Fluid was discarded. MEDICAL HISTORY : Irritable bowel syndrome. SURGICAL HISTORY : neck. ENCOUNTER: Initial ACUITY: 1 day PAIN SCORE: 0/10 LOCATION: Right lower quadrant PROCEDURE: 1.) Conscious sedation with continuous EKG and oximetry monitoring. 2.) EKG and oximetry remained stable throughout the procedure. PROCEDURE : 1. CT guided drainage of the right lower quadrant 2. Conscious sedation with continuous EKG and oximetry monitoring. The risks, benefits and alternatives to the procedure were explained and verbal and written consent was obtained. Using automated exposure control and adjustment of the mA and/or kV according to patient size, radiation dose was kept as low as reasonably achievable to obtain optimal diagnostic quality images. The site was prepped in sterile fashion. Full sterile technique was used, including cap, mask, sterile gloves and gown and a large sterile sheet. Hand hygiene and 2% chlorhexidine and/or betadine/alcohol prep was utilized per protocol for cutaneous antisepsis. The skin and subcutaneous tissues were infiltrated with local anesthetic solution. DICOM format image data is available electronically for review and comparison. Using CT guidance the prescribed site was localized. Drainage was performed using the prescribed catheter The patient tolerated the procedure well and there were no complications. Conscious sedation was performed with the prescribed dosages and duration as above in the presence of an independent trained radiology nurse to assist in the monitoring of the patient. EKG and oximetry remained stable throughout the procedure. The patient tolerated the procedure well and there were no complications. The patient was sent to post anesthesia recovery in stable condition. CONCLUSION: Uncomplicated CT guided drainage of the abscess which appears to have decreased in size. 14 Bengali catheter placed. There is extensive inflammation and possibility of appendicitis remains high in the differential. Andrade Breaux MD on May 21, 2017 at 16:00 Board Certified Radiologist. This report was verified electronically. Medications and IVs Current Medications Vancomycin HCl 1000 mg/Sodium Chloride 250 ml @ 250 mls/hr Q12H IV Last administered on 05/21/17 08:29; Start 05/20/17 at 21:00 Piperacillin Sod/ Tazobactam Sod 100 ml @ 200 mls/hr Q6H IV Last administered on 05/21/17 17:21; Start 05/21/17 at 00:00 Sodium Chloride (NS Flush) 2 ml UNSCH PRN IV FLUSH FLUSH AFTER USING IV ACCESS ; Start 05/20/17 at 18:45; Status UNV Sodium Chloride (NS Flush) 2 ml BID IV FLUSH ; Start 05/20/17 at 21:00; Status UNV Naloxone HCl (Narcan Inj) 0.4 mg UNSCH PRN IV PUSH SEE LABEL COMMENTS; Start 05/20/17 at 18:45 Senna/Docusate Sodium (Karo-Colace) 1 tab BID PO ; Start 05/20/17 at 21:00; Status UNV Magnesium Hydroxide (Milk Of Magnesia Liq) 30 ml Q12H PRN PO MILD - MODERATE CONSTIPATION; Start 05/20/17 at 18:45; Status UNV Sennosides (Senokot) 17.2 mg Q12H PRN PO MODERATE - SEVERE CONSTIPATION; Start 05/20/17 at 18:45; Status UNV Bisacodyl (Dulcolax Supp) 10 mg DAILY PRN RECTAL SEVERE CONSITIPATION; Start 05/20/17 at 18:45 Lactulose (Lactulose Liq) 30 ml DAILY PRN PO SEVERE CONSITIPATION; Start at 18:45 Sodium Chloride 1,000 ml @ 75 mls/hr [id number] IV Last administered on 20:20; Start 05/20/17 at 20:00; Stop 05/20/17 at 23:36; Status DC Sodium Chloride (NS Flush) 2 ml UNSCH PRN IV FLUSH FLUSH AFTER USING IV ACCESS ; Start 05/20/17 at 18:45 Sodium Chloride (NS Flush) 2 ml BID IV FLUSH Last administered on 05/20/17 20: 20; Start 05/20/17 at 21:00 Acetaminophen (Tylenol) 650 mg Q4H PRN PO TEMP > 100.4 Last administered on 06:27; Start 05/20/17 at 18:45 Ondansetron HCl (Zofran Inj) 4 mg Q6H PRN IVP NAUSEA OR VOMITING Last administered on 05/20/17 22:12; Start 05/20/17 at 18:45 Prochlorperazine (Compazine Supp) 25 mg Q12H PRN RECTAL NAUSEA OR VOMITING; Start 05/20/17 at 18:45 Acetaminophen (Tylenol) 650 mg Q6H PRN PO PAIN SCALE 1 TO 2; Start 05/20/17 at 18:45 Oxycodone/ Acetaminophen (Percocet 5-325 Mg) 1 tab Q6H PRN PO PAIN SCALE 3 TO 5; Start 05/20/17 at 18:45 Oxycodone/ Acetaminophen (Percocet 10-325 Mg) 1 tab Q6H PRN PO PAIN SCALE 6 TO 10 Last administered on 05/20/17 22:11; Start 05/20/17 at 18:45 Morphine Sulfate (Morphine Inj) 2 mg Q3H PRN IV PUSH Pain 3-5; if unable to take PO; Start 05/20/17 at 18:45 Morphine Sulfate (Morphine Inj) 4 mg Q3H PRN IV PUSH Pain 6-10;if unable to take PO; Start 05/20/17 at 18:45 Naloxone HCl (Narcan Inj) 0.4 mg UNSCH PRN IV PUSH SEE LABEL COMMENTS; Start 05/20/17 at 18:45 Senna/Docusate Sodium (Karo-Colace) 1 tab BID PO ; Start 05/20/17 at 21:00 Magnesium Hydroxide (Milk Of Magnesia Liq) 30 ml Q12H PRN PO MILD - MODERATE CONSTIPATION; Start 05/20/17 at 18:45 Sennosides (Senokot) 17.2 mg Q12H PRN PO MODERATE - SEVERE CONSTIPATION; Start 05/20/17 at 18:45 Bisacodyl (Dulcolax Supp) 10 mg DAILY PRN RECTAL SEVERE CONSITIPATION; Start 05/20/17 at 18:45; Status UNV Lactulose (Lactulose Liq) 30 ml DAILY PRN PO SEVERE CONSITIPATION; Start at 18:45; Status UNV Alprazolam (Xanax) 0.25 mg Q4H PRN PO ANXIETY; Start 05/20/17 at 19:00 Fluoxetine HCl (PROzac) 40 mg DAILY PO Last administered on 05/21/17 08:30; Start 05/21/17 at 09:00 Diphenhydramine HCl (Benadryl) 50 mg HS PRN PO INSOMNIA; Start 05/20/17 at 22: 15 Sodium Chloride 1,000 ml @ 75 mls/hr [id number] IV Last administered on 00:01; Start 05/20/17 at 23:30 Fentanyl Citrate (fentaNYL INJ) 200 mcg STK-MED ONCE .ROUTE Last administered on 05/21/17 14:50; Start 05/21/17 at 13:24; Stop 05/21/17 at 13:25; Status DC Midazolam HCl (Versed Inj) 5 mg STK-MED ONCE .ROUTE Last administered on 14:50; Start 05/21/17 at 13:24; Stop 05/21/17 at 13:25; Status DC Lidocaine HCl (Xylocaine 1% Inj) 20 ml STK-MED ONCE .ROUTE ; Start 05/21/17 at 13:30; Stop 05/21/17 at 13:31; Status DC Fentanyl Citrate (fentaNYL INJ) 100 mcg STK-MED ONCE .ROUTE Last administered on 05/21/17t 15:20; Start 05/21/17 at 15:20; Stop 05/21/17 at 15:21; Status DC Sodium Chloride (NS Inj) 10 ml BID IRRIGATION ; Start 05/21/17 at 21:00 Urinary Catheter: No Vascular Central Line Catheter: No A/P Problem List: (1) Abdominal abscess ICD Code: K65.1 - Peritoneal abscess (2) Leukocytosis ICD Code: D72.829 - Elevated white blood cell count, unspecified (3) Irritable bowel syndrome ICD Code: K58.9 - Irritable bowel syndrome without diarrhea (4) Hyponatremia ICD Code: E87.1 - Hypo-osmolality and hyponatremia (5) Transaminitis ICD Code: R74.0 - Nonspecific elevation of levels of transaminase and lactic acid dehydrogenase [LDH] Assessment and Plan 52-year-old male with a history of irritable bowel syndrome who presents to the ED and [facility] on 05/20/2017 for evaluation of abdominal pain with fever, nausea, and diarrhea and is transferred to the main hospital for management of abdominal abscess. Abdominal abscess Sepsis - Leukocytosis with bandemia secondary to infection, tachycardia, fevers History of irritable bowel syndrome - Antibiotics: Zosyn 4.5 g IV every 6 hours and vancomycin IV with pharmacy consultation for therapeutic monitoring and dosing - Consult general surgery - assistance appreciated - Consult invasive radiology department had drain placed by them today - Acetaminophen 650 mg every 4 hours by mouth when necessary fever greater than 100.4 with limit of 3000 mg per 24-hour period - Zofran 4 mg IV every 6 hours when necessary nausea or vomiting - Morphine 2-4 mg IV every 3 hours as needed for pain if unable to take by mouth - Percocet p.o. PRN pain - will check lactic acid Had drain placed in right lower quadrant by interventional radiology today May 21 Hyponatremia - Sodium 132 on admission with no prior labs for comparison - Replace with IV fluids normal saline at 75 cc per hour - Recheck CMP in a.m. and follow sodium level results Transaminitis - AST 88 - ALT 152 - recheck CMP in a.m. and follow results - consider hepatitis panel if persists Hypokalemia Will replace DVT prophylaxis - SCDs/TEDs . Discussed with patient and RN and significant other Discharge Planning Continue current antibiotics and drain Pain control Diet Has been advanced to clear liquids per surgery Problem Qualifiers (1) Leukocytosis: Qualified Codes: D72.825 - Bandemia (2) Irritable bowel syndrome: Qualified Codes: K58.0 - Irritable bowel syndrome with diarrhea Yuri Watson DO May 21, 2017 17:54
[2017-05-21] MEDS: oxyCODONE/ACETAMINOPHEN 10 MG/325 MG TAB PO PRN (18:02)
[2017-05-21] MEDS: POTASSIUM CHLORIDE 10 MEQ CONTROLLED RELEASE TAB PO SCH (18:31)
[2017-05-21] MEDS: SODIUM CHLORIDE 0.9% 10 ML VIAL IRRIGATION SCH ×2 (20:02→22:00)
[2017-05-22] VITALS (8 sets, daily range): BP systolic 101–124; BP diastolic 59–71; PULSE 68–89; RESP 16–18; TEMP 96.8–97.8; O2SAT 95–98
[2017-05-22] MEDS: oxyCODONE/ACETAMINOPHEN 10 MG/325 MG TAB PO PRN ×3 (00:16→23:01)
[2017-05-22] MEDS: ALPRAZolam 0.25 MG TAB PO PRN (00:24)
[2017-05-22] MEDS: PIPERACIL-TAZO 4.5 GM PREMIX 100 ML IV SCH ×4 (00:25→17:05)
[2017-05-22 07:40] LABS: AUTOMATED NEUTROPHIL # 9.4 TH/MM3 (1.8-7.7); BASOPHIL % 0.2 % (0.0-2.0); EOSINOPHIL # 0.1 TH/MM3 (0-0.4); EOSINOPHIL % 0.7 % (0.0-4.0); HEMATOCRIT 33.8 % (39.0-51.0); HEMO FLAGS DIFF FINAL; LYMPH % 15.9 % (9.0-44.0); MEAN CELL VOLUME 92.1 FL (80.0-100.0); MEAN CORPUSCULAR HEMOGLOBIN 31.2 PG (27.0-34.0); MEAN CORPUSCULAR HGB CONC 33.8 % (32.0-36.0); MONO % 7.4 % (0.0-8.0); NEUT % 75.8 % (16.0-70.0); PLATELET COUNT 504 TH/MM3 (150-450); RED BLOOD COUNT 3.67 MIL/MM3 (4.50-5.90); RED CELL DISTRIBUTION WIDTH 13.5 % (11.6-17.2); WHITE BLOOD COUNT 12.5 TH/MM3 (4.0-11.0)
[2017-05-22 08:00] LABS: ANION GAP 9 MEQ/L (5-15); AST (GOT) 49 U/L (15-37); BICARBONATE 25.6 MEQ/L (21.0-32.0); BLOOD UREA NITROGEN 12 MG/DL (7-18); CHLORIDE 104 MEQ/L (98-107); GLOMERULAR FILTRATION RATE 93 ML/MIN (>89); MAGNESIUM 2.6 MG/DL (1.5-2.5); POTASSIUM 3.8 MEQ/L (3.5-5.1); SODIUM (NA) 139 MEQ/L (136-145)
[2017-05-22 08:02] LABS: ALT (GPT) 112 U/L (12-78)
[2017-05-22 08:05] LABS: ALKALINE PHOSPHATASE 129 U/L (45-117); TOTAL BILIRUBIN ADULT 0.3 MG/DL (0.2-1.0)
--- NOTE | 2017-05-22 08:27 | HHI.PR ---
Subjective Subjective Notes slept off and on, rested some. Hungry. Voiding on own. Objective Vitals/I&O Vital Signs Date Time Temp Pulse Resp B/P (MAP) Pulse Ox O2 Delivery O2 Flow Rate FiO2 05/22/17 04:54 96.8 78 18 101/63 (76) 95 Labs Laboratory Tests Test 05/22/17 06:08 White Blood Count 12.5 Red Blood Count 3.67 Hemoglobin 11.4 Hematocrit 33.8 Mean Corpuscular Volume 92.1 Mean Corpuscular Hemoglobin 31.2 Mean Corpuscular Hemoglobin Concent 33.8 Red Cell Distribution Width 13.5 Platelet Count 504 Mean Platelet Volume 6.9 Neutrophils (%) (Auto) 75.8 Lymphocytes (%) (Auto) 15.9 Monocytes (%) (Auto) 7.4 Eosinophils (%) (Auto) 0.7 Basophils (%) (Auto) 0.2 Neutrophils # (Auto) 9.4 Lymphocytes # (Auto) 2.0 Monocytes # (Auto) 0.9 Eosinophils # (Auto) 0.1 Basophils # (Auto) 0.0 CBC Comment DIFF FINAL Differential Comment Blood Urea Nitrogen 12 Creatinine 0.86 Random Glucose 83 Total Protein 6.8 Albumin 2.3 Calcium Level 8.4 Phosphorus Level 2.9 Magnesium Level 2.6 Alkaline Phosphatase 129 Aspartate Amino Transf (AST/SGOT) 49 Alanine Aminotransferase (ALT/SGPT) 112 Total Bilirubin 0.3 Sodium Level 139 Potassium Level 3.8 Chloride Level 104 Carbon Dioxide Level 25.6 Anion Gap 9 Estimat Glomerular Filtration Rate 93 Abdomen: Non-distended, Non-tender, Other (drain still purulent, amount decreasing.) Extremities: No edema, Perfused A/P Assessment and Plan s/p perc drain RLQ abscess, likely perforated appendicitis. Advance diet. send fluid for Gram stain, C and S. Case management for [facility] for drain assist. Home in next couple of days, can follow up as outpatient. Alan Hankins MD May 22, 2017 08:27
[2017-05-22] MEDS: POTASSIUM CHLORIDE 10 MEQ CONTROLLED RELEASE TAB PO SCH (08:55)
[2017-05-22] MEDS: FLUoxetine HCL 20 MG CAP PO SCH (08:56)
[2017-05-22] MEDS: VANCOMYCIN INJ 1,000 MG in SODIUM CHLOR 0.9% 250 ML INJ 250 ML IV SCH ×2 (08:56→20:57)
[2017-05-22] MEDS: SODIUM CHLORIDE 0.9% FLUSH 10 ML FLUSH IV FLUSH SCH ×2 (08:57→20:58)
[2017-05-22] MEDS: SODIUM CHLORIDE 0.9% 10 ML VIAL IRRIGATION SCH ×2 (08:57→20:58)
[2017-05-22] MEDS: DOCUSATE SODIUM 50 MG/SENNA 8.6 MG TAB PO SCH ×2 (08:57→20:58)
--- NOTE | 2017-05-22 10:50 | HHI.FF ---
Face to Face Verification Diagnosis: (1) Abdominal abscess Home Health Nursing Order: Wound care and dressing changes Instructions: Wound care ---- management and teaching I have seen patient Sergio Wagner on 05/22/17. My clinical findings support the need for the requested home health care services because: Limited ability to care for self I certify that my clinical findings support that this patient is homebound because: Post-op weakness Alena Hurtado [facility] May 22, 2017 10:50
[2017-05-22] MEDS: SODIUM CHLOR 0.9% 1000 ML INJ 1,000 ML IV SCH ×2 (15:07→20:58)
--- NOTE | 2017-05-22 16:25 | HHI.PR ---
Subjective Remarks Mr. Wagner is a pleasant 52-year-old male with a past medical history of irritable bowel syndrome who presented to the emergency room in [place] on 2016 complaining of fever, nausea, and diarrhea. CT of the abdomen and pelvis showed large abscess in the right lower quadrant with associated inflammatory changes. Abnormal bowel wall thickening involving the ascending colon and distal ileum were identified. General surgery was consulted and requested transfer to the main campus for interventional radiology percutaneous drainage as well as IV antibiotic therapy. The patient is seen in his hospital room. He tells me he thought he had a "stomach bug" for the past week. He reports fevers as high as 105 accompanied by one day of chills at the beginning, nausea throughout, no vomiting, diarrhea for 7 days with 2-3 episodes today and 5-10 episodes occurring a couple of days ago. The stool is described as watery, without any bloody appearance or melena. He denies dysuria, hematuria, shortness of breath, or chest pain. He reports severe right sided abdominal pain that is currently rated 7 out of 10 and is worse with light palpation and not relieved by anything as of yet. This pain has been going on for 7 days and has gotten progressively worse. 10-9 SEEN BY GENERAL SURGERY WELL INTERVENTIONAL RADIOLOGY DRAIN PLACED TODAY BY IR 10-10 TOLERATING A DIET SOME ABDOMINAL PAIN LESS THAN YESTERDAY DW PT AND RN AND PARTNER STILL WITH SOME DRAINAGE FROM ABDOMEN Objective Vitals Vital Signs Date Time Temp Pulse Resp B/P (MAP) Pulse Ox O2 Delivery O2 Flow Rate FiO2 05/22/17 12:00 97.2 71 17 106/60 (75) 96 05/22/17 08:00 97.5 81 16 105/69 (81) 96 05/22/17 04:54 96.8 78 18 101/63 (76) 95 05/22/17 01:56 20 05/22/17 00:30 97.2 89 18 124/71 (88) 98 05/21/17 20:27 97.7 89 18 101/61 (74) 100 05/21/17 19:45 69 05/21/17 17:00 96.5 83 17 97/61 (73) 96 I/O 05/21/17 05/21/17 05/21/17 05/22/17 05/22/17 05/22/17 07:00 15:00 23:00 07:00 15:00 23:00 Intake Total 1125 ml 350 ml 1159 ml 480 ml 875 ml Output Total 1 ml 70 ml 30 ml Balance 1125 ml 350 ml 1158 ml 410 ml 845 ml Intake Oral 600 ml 480 ml IV Total 1125 ml 350 ml 559 ml 875 ml Output Urine Total 1 ml Drainage Total 70 ml 30 ml # Voids 4 3 # Bowel Movements 2 2 Result Diagram: 05/22/17 0608 05/22/17 0608 Other Results Laboratory Tests Test 05/21/17 07:54 05/22/17 06:08 White Blood Count 21.1 TH/MM3 12.5 TH/MM3 Red Blood Count 3.82 MIL/MM3 3.67 MIL/MM3 Hemoglobin 11.8 GM/DL 11.4 GM/DL Hematocrit 34.7 % 33.8 % Mean Corpuscular Volume 90.8 FL 92.1 FL Mean Corpuscular Hemoglobin 31.0 PG 31.2 PG Mean Corpuscular Hemoglobin Concent 34.1 % 33.8 % Red Cell Distribution Width 13.2 % 13.5 % Platelet Count 485 TH/MM3 504 TH/MM3 Mean Platelet Volume 6.7 FL 6.9 FL Neutrophils (%) (Auto) 79.5 % 75.8 % Lymphocytes (%) (Auto) 8.7 % 15.9 % Monocytes (%) (Auto) 11.5 % 7.4 % Eosinophils (%) (Auto) 0.1 % 0.7 % Basophils (%) (Auto) 0.2 % 0.2 % Neutrophils # (Auto) 16.8 TH/MM3 9.4 TH/MM3 Lymphocytes # (Auto) 1.8 TH/MM3 2.0 TH/MM3 Monocytes # (Auto) 2.4 TH/MM3 0.9 TH/MM3 Eosinophils # (Auto) 0.0 TH/MM3 0.1 TH/MM3 Basophils # (Auto) 0.0 TH/MM3 0.0 TH/MM3 CBC Comment AUTO DIFF DIFF FINAL Differential Comment AUTO DIFF CONFIRMED Dohle Bodies PRESENT Platelet Estimate HIGH Platelet Morphology Comment NORMAL Red Cell Morphology Comment NORMAL Prothrombin Time 13.1 SEC Prothromb Time International Ratio 1.2 RATIO Activated Partial Thromboplast Time 31.4 SEC Blood Urea Nitrogen 15 MG/DL 12 MG/DL Creatinine 1.08 MG/DL 0.86 MG/DL Random Glucose 99 MG/DL 83 MG/DL Total Protein 7.4 GM/DL 6.8 GM/DL Albumin 2.6 GM/DL 2.3 GM/DL Calcium Level 8.7 MG/DL 8.4 MG/DL Phosphorus Level 3.9 MG/DL 2.9 MG/DL Magnesium Level 2.6 MG/DL 2.6 MG/DL Alkaline Phosphatase 135 U/L 129 U/L Aspartate Amino Transf (AST/SGOT) 80 U/L 49 U/L Alanine Aminotransferase (ALT/SGPT) 146 U/L 112 U/L Total Bilirubin 0.7 MG/DL 0.3 MG/DL Sodium Level 133 MEQ/L 139 MEQ/L Potassium Level 3.4 MEQ/L 3.8 MEQ/L Chloride Level 99 MEQ/L 104 MEQ/L Carbon Dioxide Level 24.5 MEQ/L 25.6 MEQ/L Anion Gap 10 MEQ/L 9 MEQ/L Estimat Glomerular Filtration Rate 71 ML/MIN 93 ML/MIN Hemoglobin A1c 5.5 % Free Thyroxine 1.61 NG/DL Thyroid Stimulating Hormone 3rd Gen 1.190 uIU/ML Imaging Last Impressions Abscess Drainage CT 05/21/17 0000 Signed Impressions: Service Date/Time: Sunday, May 21, 2017 14:54 - CONCLUSION: Uncomplicated CT guided drainage of the abscess which appears to have decreased in size. 14 [place] catheter placed. There is extensive inflammation and possibility of appendicitis remains high in the differential. Andrade Breaux MD Objective Remarks GENERAL: This is a well-nourished, well-developed patient, in no apparent distress. SKIN: No rashes, ecchymoses or lesions. Cool and dry. HEAD: Atraumatic. Normocephalic. EYES: No scleral icterus. No injection or drainage. Extraocular muscles intact ENT: Nose without bleeding, purulent drainage. Tongue is midline or mucosa is moist NECK: Trachea midline. No JVD or lymphadenopathy. Supple CARDIOVASCULAR: Regular rate and rhythm without murmurs, gallops, or rubs. S1- S2 no S3 or S4 no heave or thrill or rub RESPIRATORY: Clear to auscultation. Breath sounds equal bilaterally. No wheezes , rales, or rhonchi. GASTROINTESTINAL: Normal bowel sounds. Abdomen soft, nondistended. No guarding. Abdomen tender to right upper and lower with light palpation. Has LESS pain in the right lower quadrant --has drain in place MUSCULOSKELETAL: Extremities without clubbing, cyanosis, or edema. No calf tenderness. NEUROLOGICAL: Awake and alert. Motor and sensory grossly within normal limits. Normal speech. Insight and judgment is good; mood and behaviors appropriate . Procedures CT Assisted Abscess Drain Signed EXAM DATE/TIME: 05/21/2017 14:54 [facility] COMPARISON: No previous studies available for comparison. INDICATIONS : Abdominal abscess. SEDATION TIME: 30 MEDICATION(S): 1.) 5 mg midazolam (Versed) IV 2.) 250 mcg fentanyl (Sublimaze) IV DEVICE(S): 1.) 14 Fr catheter FLUID: Total volume of 20 cc of cloudy, yellow fluid was removed. Fluid was discarded. MEDICAL HISTORY : Irritable bowel syndrome. SURGICAL HISTORY : neck. ENCOUNTER: Initial ACUITY: 1 day PAIN SCORE: 0/10 LOCATION: Right lower quadrant PROCEDURE: 1.) Conscious sedation with continuous EKG and oximetry monitoring. 2.) EKG and oximetry remained stable throughout the procedure. PROCEDURE : 1. CT guided drainage of the right lower quadrant 2. Conscious sedation with continuous EKG and oximetry monitoring. The risks, benefits and alternatives to the procedure were explained and verbal and written consent was obtained. Using automated exposure control and adjustment of the mA and/or kV according to patient size, radiation dose was kept as low as reasonably achievable to obtain optimal diagnostic quality images. The site was prepped in sterile fashion. Full sterile technique was used, including cap, mask, sterile gloves and gown and a large sterile sheet. Hand hygiene and 2% chlorhexidine and/or betadine/alcohol prep was utilized per protocol for cutaneous antisepsis. The skin and subcutaneous tissues were infiltrated with local anesthetic solution. DICOM format image data is available electronically for review and comparison. Using CT guidance the prescribed site was localized. Drainage was performed using the prescribed catheter The patient tolerated the procedure well and there were no complications. Conscious sedation was performed with the prescribed dosages and duration as above in the presence of an independent trained radiology nurse to assist in the monitoring of the patient. EKG and oximetry remained stable throughout the procedure. The patient tolerated the procedure well and there were no complications. The patient was sent to post anesthesia recovery in stable condition. CONCLUSION: Uncomplicated CT guided drainage of the abscess which appears to have decreased in size. 14 [place] catheter placed. There is extensive inflammation and possibility of appendicitis remains high in the differential. Andrade Breaux MD on May 21, 2017 at 16:00 Board Certified Radiologist. This report was verified electronically. Medications and IVs Current Medications Vancomycin HCl 1000 mg/Sodium Chloride 250 ml @ 250 mls/hr Q12H IV Last administered on 05/22/17 08:56; Start 05/20/17 at 21:00 Piperacillin Sod/ Tazobactam Sod 100 ml @ 200 mls/hr Q6H IV Last administered on 05/22/17 11:59; Start 05/21/17 at 00:00 Sodium Chloride (NS Flush) 2 ml UNSCH PRN IV FLUSH FLUSH AFTER USING IV ACCESS ; Start 05/20/17 at 18:45; Status UNV Sodium Chloride (NS Flush) 2 ml BID IV FLUSH ; Start 05/20/17 at 21:00; Status UNV Naloxone HCl (Narcan Inj) 0.4 mg UNSCH PRN IV PUSH SEE LABEL COMMENTS; Start 05/20/17 at 18:45 Senna/Docusate Sodium (Karo-Colace) 1 tab BID PO ; Start 05/20/17 at 21:00; Status UNV Magnesium Hydroxide (Milk Of Magnesia Liq) 30 ml Q12H PRN PO MILD - MODERATE CONSTIPATION; Start 05/20/17 at 18:45; Status UNV Sennosides (Senokot) 17.2 mg Q12H PRN PO MODERATE - SEVERE CONSTIPATION; Start 05/20/17 at 18:45; Status UNV Bisacodyl (Dulcolax Supp) 10 mg DAILY PRN RECTAL SEVERE CONSITIPATION; Start 05/20/17 at 18:45 Lactulose (Lactulose Liq) 30 ml DAILY PRN PO SEVERE CONSITIPATION; Start at 18:45 Sodium Chloride 1,000 ml @ 75 mls/hr [id number] IV Last administered on 20:20; Start 05/20/17 at 20:00; Stop 05/20/17 at 23:36; Status DC Sodium Chloride (NS Flush) 2 ml UNSCH PRN IV FLUSH FLUSH AFTER USING IV ACCESS ; Start 05/20/17 at 18:45 Sodium Chloride (NS Flush) 2 ml BID IV FLUSH Last administered on 05/20/17 20: 20; Start 05/20/17 at 21:00 Acetaminophen (Tylenol) 650 mg Q4H PRN PO TEMP > 100.4 Last administered on 06:27; Start 05/20/17 at 18:45 Ondansetron HCl (Zofran Inj) 4 mg Q6H PRN IVP NAUSEA OR VOMITING Last administered on 05/20/17 22:12; Start 05/20/17 at 18:45 Prochlorperazine (Compazine Supp) 25 mg Q12H PRN RECTAL NAUSEA OR VOMITING; Start 05/20/17 at 18:45 Acetaminophen (Tylenol) 650 mg Q6H PRN PO PAIN SCALE 1 TO 2; Start 05/20/17 at 18:45 Oxycodone/ Acetaminophen (Percocet 5-325 Mg) 1 tab Q6H PRN PO PAIN SCALE 3 TO 5; Start 05/20/17 at 18:45 Oxycodone/ Acetaminophen (Percocet 10-325 Mg) 1 tab Q6H PRN PO PAIN SCALE 6 TO 10 Last administered on 05/22/17 00:16; Start 05/20/17 at 18:45 Morphine Sulfate (Morphine Inj) 2 mg Q3H PRN IV PUSH Pain 3-5; if unable to take PO; Start 05/20/17 at 18:45 Morphine Sulfate (Morphine Inj) 4 mg Q3H PRN IV PUSH Pain 6-10;if unable to take PO; Start 05/20/17 at 18:45 Naloxone HCl (Narcan Inj) 0.4 mg UNSCH PRN IV PUSH SEE LABEL COMMENTS; Start 05/20/17 at 18:45 Senna/Docusate Sodium (Karo-Colace) 1 tab BID PO ; Start 05/20/17 at 21:00 Magnesium Hydroxide (Milk Of Magnesia Liq) 30 ml Q12H PRN PO MILD - MODERATE CONSTIPATION; Start 05/20/17 at 18:45 Sennosides (Senokot) 17.2 mg Q12H PRN PO MODERATE - SEVERE CONSTIPATION; Start 05/20/17 at 18:45 Bisacodyl (Dulcolax Supp) 10 mg DAILY PRN RECTAL SEVERE CONSITIPATION; Start 05/20/17 at 18:45; Status UNV Lactulose (Lactulose Liq) 30 ml DAILY PRN PO SEVERE CONSITIPATION; Start at 18:45; Status UNV Alprazolam (Xanax) 0.25 mg Q4H PRN PO ANXIETY Last administered on 05/22/17 00:24; Start 05/20/17 at 19:00 Fluoxetine HCl (PROzac) 40 mg DAILY PO Last administered on 05/22/17 08:56; Start 05/21/17 at 09:00 Diphenhydramine HCl (Benadryl) 50 mg HS PRN PO INSOMNIA; Start 05/20/17 at 22: 15 Sodium Chloride 1,000 ml @ 75 mls/hr [id number] IV Last administered on 19:57; Start 05/20/17 at 23:30 Fentanyl Citrate (fentaNYL INJ) 200 mcg STK-MED ONCE .ROUTE Last administered on 05/21/17 14:50; Start 05/21/17 at 13:24; Stop 05/21/17 at 13:25; Status DC Midazolam HCl (Versed Inj) 5 mg STK-MED ONCE .ROUTE Last administered on 14:50; Start 05/21/17 at 13:24; Stop 05/21/17 at 13:25; Status DC Lidocaine HCl (Xylocaine 1% Inj) 20 ml STK-MED ONCE .ROUTE ; Start 05/21/17 at 13:30; Stop 05/21/17 at 13:31; Status DC Fentanyl Citrate (fentaNYL INJ) 100 mcg STK-MED ONCE .ROUTE Last administered on 05/21/17 15:20; Start 05/21/17 at 15:20; Stop 05/21/17 at 15:21; Status DC Sodium Chloride (NS Inj) 10 ml BID IRRIGATION Last administered on 05/22/17 08:57; Start 05/21/17 at 21:00 Potassium Chloride (KCl) 40 meq DAILY PO Last administered on 05/22/17 08:55 ; Start 05/21/17 at 18:00 Urinary Catheter: No Vascular Central Line Catheter: No A/P Problem List: (1) Abdominal abscess ICD Code: K65.1 - Peritoneal abscess (2) Leukocytosis ICD Code: D72.829 - Elevated white blood cell count, unspecified (3) Irritable bowel syndrome ICD Code: K58.9 - Irritable bowel syndrome without diarrhea (4) Hyponatremia ICD Code: E87.1 - Hypo-osmolality and hyponatremia (5) Transaminitis ICD Code: R74.0 - Nonspecific elevation of levels of transaminase and lactic acid dehydrogenase [LDH] Assessment and Plan 52-year-old male with a history of irritable bowel syndrome who presents to the ED and [facility] a on 05/20/2017 for evaluation of abdominal pain with fever, nausea, and diarrhea and is transferred to the main hospital for management of abdominal abscess. Abdominal abscess Sepsis - Leukocytosis with bandemia secondary to infection, tachycardia, fevers History of irritable bowel syndrome - Antibiotics: Zosyn 4.5 g IV every 6 hours and vancomycin IV with pharmacy consultation for therapeutic monitoring and dosing - Consult general surgery - assistance appreciated - Consult invasive radiology department had drain placed by them today - Acetaminophen 650 mg every 4 hours by mouth when necessary fever greater than 100.4 with limit of 3000 mg per 24-hour period - Zofran 4 mg IV every 6 hours when necessary nausea or vomiting - Morphine 2-4 mg IV every 3 hours as needed for pain if unable to take by mouth - Percocet p.o. PRN pain - will check lactic acid Had drain placed in right lower quadrant by interventional radiology today May 21 Hyponatremia - Sodium 132 on admission with no prior labs for comparison - Replace with IV fluids normal saline at 75 cc per hour - Recheck CMP in a.m. and follow sodium level results Transaminitis - AST 88 - ALT 152 - recheck CMP in a.m. and follow results - consider hepatitis panel if persists Hypokalemia Will replace DVT prophylaxis - SCDs/TEDs . Discussed with patient and RN and significant other AM LABS Discharge Planning Continue current antibiotics and drain Pain control Diet Has been advanced to REGULAR DIET Problem Qualifiers (1) Leukocytosis: Qualified Codes: D72.825 - Bandemia (2) Irritable bowel syndrome: Qualified Codes: K58.0 - Irritable bowel syndrome with diarrhea Yuri Watson DO May 22, 2017 16:25
[2017-05-23] VITALS (8 sets, daily range): BP systolic 100–127; BP diastolic 59–74; PULSE 68–89; RESP 17–20; TEMP 96.3–97.5; O2SAT 96–98
[2017-05-23] MEDS: PIPERACIL-TAZO 4.5 GM PREMIX 100 ML IV SCH ×4 (00:52→18:00)
[2017-05-23] MEDS: oxyCODONE/ACETAMINOPHEN 10 MG/325 MG TAB PO PRN (05:05)
[2017-05-23] MEDS: SODIUM CHLORIDE 0.9% FLUSH 10 ML FLUSH IV FLUSH SCH ×2 (09:00→20:18)
[2017-05-23] MEDS: VANCOMYCIN INJ 1,000 MG in SODIUM CHLOR 0.9% 250 ML INJ 250 ML IV SCH ×2 (09:00→20:16)
[2017-05-23] MEDS: SODIUM CHLORIDE 0.9% 10 ML VIAL IRRIGATION SCH ×2 (09:00→20:18)
[2017-05-23 10:09] LABS: AUTOMATED NEUTROPHIL # 6.2 TH/MM3 (1.8-7.7); BASOPHIL # 0.1 TH/MM3 (0-0.2); BASOPHIL % 0.6 % (0.0-2.0); EOSINOPHIL # 0.1 TH/MM3 (0-0.4); EOSINOPHIL % 1.3 % (0.0-4.0); HEMATOCRIT 34.5 % (39.0-51.0); LYMPH % 18.9 % (9.0-44.0); LYMPHOCYTE # 1.6 TH/MM3 (1.0-4.8); MEAN CELL VOLUME 91.7 FL (80.0-100.0); MEAN CORPUSCULAR HEMOGLOBIN 30.7 PG (27.0-34.0); MEAN CORPUSCULAR HGB CONC 33.5 % (32.0-36.0); MONO % 7.8 % (0.0-8.0); NEUT % 71.4 % (16.0-70.0); PLATELET COUNT 562 TH/MM3 (150-450); RED BLOOD COUNT 3.76 MIL/MM3 (4.50-5.90); RED CELL DISTRIBUTION WIDTH 13.3 % (11.6-17.2); WHITE BLOOD COUNT 8.7 TH/MM3 (4.0-11.0)
[2017-05-23 10:12] LABS: HEMO FLAGS AUTO DIFF
[2017-05-23] MEDS: FLUoxetine HCL 20 MG CAP PO SCH (10:14)
[2017-05-23] MEDS: POTASSIUM CHLORIDE 10 MEQ CONTROLLED RELEASE TAB PO SCH (10:14)
[2017-05-23] MEDS: DOCUSATE SODIUM 50 MG/SENNA 8.6 MG TAB PO SCH ×2 (10:15→20:14)
[2017-05-23 10:39] LABS: SCAN/DIFF AUTO DIFF CONFIRMED
[2017-05-23 10:40] LABS: ALT (GPT) 137 U/L (12-78); ANION GAP 8 MEQ/L (5-15); AST (GOT) 61 U/L (15-37); BICARBONATE 25.6 MEQ/L (21.0-32.0); BLOOD UREA NITROGEN 7 MG/DL (7-18); CHLORIDE 106 MEQ/L (98-107); GLOMERULAR FILTRATION RATE 97 ML/MIN (>89); MAGNESIUM 2.4 MG/DL (1.5-2.5); POTASSIUM 3.8 MEQ/L (3.5-5.1); SODIUM (NA) 140 MEQ/L (136-145)
[2017-05-23 10:43] LABS: ALKALINE PHOSPHATASE 95 U/L (45-117); TOTAL BILIRUBIN ADULT 0.2 MG/DL (0.2-1.0)
--- NOTE | 2017-05-23 11:50 | HHI.PR ---
Subjective Remarks Mr. Wagner is a pleasant 52-year-old male with a past medical history of irritable bowel syndrome who presented to the emergency room in [place] on 2016 complaining of fever, nausea, and diarrhea. CT of the abdomen and pelvis showed large abscess in the right lower quadrant with associated inflammatory changes. Abnormal bowel wall thickening involving the ascending colon and distal ileum were identified. General surgery was consulted and requested transfer to the main campus for interventional radiology percutaneous drainage as well as IV antibiotic therapy. The patient is seen in his hospital room. He tells me he thought he had a "stomach bug" for the past week. He reports fevers as high as 105 accompanied by one day of chills at the beginning, nausea throughout, no vomiting, diarrhea for 7 days with 2-3 episodes today and 5-10 episodes occurring a couple of days ago. The stool is described as watery, without any bloody appearance or melena. He denies dysuria, hematuria, shortness of breath, or chest pain. He reports severe right sided abdominal pain that is currently rated 7 out of 10 and is worse with light palpation and not relieved by anything as of yet. This pain has been going on for 7 days and has gotten progressively worse. 10-9 SEEN BY GENERAL SURGERY WELL INTERVENTIONAL RADIOLOGY DRAIN PLACED TODAY BY IR 10-10 TOLERATING A DIET SOME ABDOMINAL PAIN LESS THAN YESTERDAY DW PT AND RN AND PARTNER STILL WITH SOME DRAINAGE FROM ABDOMEN 10-11 HAD SWEATS LAST NIGHT THROUGHOUT THE NIGHT Objective Vitals Vital Signs Date Time Temp Pulse Resp B/P (MAP) Pulse Ox O2 Delivery O2 Flow Rate FiO2 05/23/17 09:46 97 05/23/17 08:00 96.4 68 18 118/72 (87) 97 05/23/17 04:38 96.3 82 20 127/74 (91) 98 05/23/17 00:05 18 05/23/17 00:01 97.3 78 18 104/70 (81) 98 05/22/17 22:03 95 21 05/22/17 21:00 68 05/22/17 20:09 97.8 80 18 108/65 (79) 98 05/22/17 16:00 97.5 83 17 104/59 (74) 95 05/22/17 12:00 97.2 71 17 106/60 (75) 96 I/O 05/22/17 05/22/17 05/22/17 05/23/17 05/23/17 05/23/17 07:00 15:00 23:00 07:00 15:00 23:00 Intake Total 480 ml 875 ml 480 ml Output Total 70 ml 30 ml 30 ml Balance 410 ml 845 ml 450 ml Intake Oral 480 ml 480 ml IV Total 875 ml Drainage Total 70 ml 30 ml 30 ml # Voids 3 3 4 # Bowel Movements 1 0 Result Diagram: 05/23/17 0852 05/23/17 0852 Other Results Laboratory Tests Test 05/21/17 07:54 05/22/17 06:08 05/23/17 08:52 White Blood Count 21.1 TH/MM3 12.5 TH/MM3 8.7 TH/MM3 Red Blood Count 3.82 MIL/MM3 3.67 MIL/MM3 3.76 MIL/MM3 Hemoglobin 11.8 GM/DL 11.4 GM/DL 11.6 GM/DL Hematocrit 34.7 % 33.8 % 34.5 % Mean Corpuscular Volume 90.8 FL 92.1 FL 91.7 FL Mean Corpuscular Hemoglobin 31.0 PG 31.2 PG 30.7 PG Mean Corpuscular Hemoglobin Concent 34.1 % 33.8 % 33.5 % Red Cell Distribution Width 13.2 % 13.5 % 13.3 % Platelet Count 485 TH/MM3 504 TH/MM3 562 TH/MM3 Mean Platelet Volume 6.7 FL 6.9 FL 7.0 FL Neutrophils (%) (Auto) 79.5 % 75.8 % 71.4 % Lymphocytes (%) (Auto) 8.7 % 15.9 % 18.9 % Monocytes (%) (Auto) 11.5 % 7.4 % 7.8 % Eosinophils (%) (Auto) 0.1 % 0.7 % 1.3 % Basophils (%) (Auto) 0.2 % 0.2 % 0.6 % Neutrophils # (Auto) 16.8 TH/MM3 9.4 TH/MM3 6.2 TH/MM3 Lymphocytes # (Auto) 1.8 TH/MM3 2.0 TH/MM3 1.6 TH/MM3 Monocytes # (Auto) 2.4 TH/MM3 0.9 TH/MM3 0.7 TH/MM3 Eosinophils # (Auto) 0.0 TH/MM3 0.1 TH/MM3 0.1 TH/MM3 Basophils # (Auto) 0.0 TH/MM3 0.0 TH/MM3 0.1 TH/MM3 CBC Comment AUTO DIFF DIFF FINAL AUTO DIFF Differential Comment AUTO DIFF CONFIRMED AUTO DIFF CONFIRMED Dohle Bodies PRESENT Platelet Estimate HIGH Platelet Morphology Comment NORMAL Red Cell Morphology Comment NORMAL Prothrombin Time 13.1 SEC Prothromb Time International Ratio 1.2 RATIO Activated Partial Thromboplast Time 31.4 SEC Blood Urea Nitrogen 15 MG/DL 12 MG/DL 7 MG/DL Creatinine 1.08 MG/DL 0.86 MG/DL 0.83 MG/DL Random Glucose 99 MG/DL 83 MG/DL 96 MG/DL Total Protein 7.4 GM/DL 6.8 GM/DL 6.8 GM/DL Albumin 2.6 GM/DL 2.3 GM/DL 2.4 GM/DL Calcium Level 8.7 MG/DL 8.4 MG/DL 8.6 MG/DL Phosphorus Level 3.9 MG/DL 2.9 MG/DL 3.0 MG/DL Magnesium Level 2.6 MG/DL 2.6 MG/DL 2.4 MG/DL Alkaline Phosphatase 135 U/L 129 U/L 95 U/L Aspartate Amino Transf (AST/SGOT) 80 U/L 49 U/L 61 U/L Alanine Aminotransferase (ALT/SGPT) 146 U/L 112 U/L 137 U/L Total Bilirubin 0.7 MG/DL 0.3 MG/DL 0.2 MG/DL Sodium Level 133 MEQ/L 139 MEQ/L 140 MEQ/L Potassium Level 3.4 MEQ/L 3.8 MEQ/L 3.8 MEQ/L Chloride Level 99 MEQ/L 104 MEQ/L 106 MEQ/L Carbon Dioxide Level 24.5 MEQ/L 25.6 MEQ/L 25.6 MEQ/L Anion Gap 10 MEQ/L 9 MEQ/L 8 MEQ/L Estimat Glomerular Filtration Rate 71 ML/MIN 93 ML/MIN 97 ML/MIN Hemoglobin A1c 5.5 % Free Thyroxine 1.61 NG/DL Thyroid Stimulating Hormone 3rd Gen 1.190 uIU/ML Imaging Last Impressions Abscess Drainage CT 05/21/17 0000 Signed Impressions: Service Date/Time: Sunday, May 21, 2017 14:54 - CONCLUSION: Uncomplicated CT guided drainage of the abscess which appears to have decreased in size. 14 Beninese catheter placed. There is extensive inflammation and possibility of appendicitis remains high in the differential. Andrade Breaux MD Objective Remarks GENERAL: This is a well-nourished, well-developed patient, in no apparent distress. SKIN: No rashes, ecchymoses or lesions. Cool and dry. HEAD: Atraumatic. Normocephalic. EYES: No scleral icterus. No injection or drainage. Extraocular muscles intact ENT: Nose without bleeding, purulent drainage. Tongue is midline or mucosa is moist NECK: Trachea midline. No JVD or lymphadenopathy. Supple CARDIOVASCULAR: Regular rate and rhythm without murmurs, gallops, or rubs. S1- S2 no S3 or S4 no heave or thrill or rub RESPIRATORY: Clear to auscultation. Breath sounds equal bilaterally. No wheezes , rales, or rhonchi. GASTROINTESTINAL: Normal bowel sounds. Abdomen soft, nondistended. No guarding. Abdomen tender to right upper and lower with light palpation. Has LESS pain in the right lower quadrant --has drain in place MUSCULOSKELETAL: Extremities without clubbing, cyanosis, or edema. No calf tenderness. NEUROLOGICAL: Awake and alert. Motor and sensory grossly within normal limits. Normal speech. Insight and judgment is good; mood and behaviors appropriate . Procedures CT Assisted Abscess Drain Signed EXAM DATE/TIME: 05/21/2017 14:54 [facility] COMPARISON: No previous studies available for comparison. INDICATIONS : Abdominal abscess. SEDATION TIME: 30 MEDICATION(S): 1.) 5 mg midazolam (Versed) IV 2.) 250 mcg fentanyl (Sublimaze) IV DEVICE(S): 1.) 14 Fr catheter FLUID: Total volume of 20 cc of cloudy, yellow fluid was removed. Fluid was discarded. MEDICAL HISTORY : Irritable bowel syndrome. SURGICAL HISTORY : neck. ENCOUNTER: Initial ACUITY: 1 day PAIN SCORE: 0/10 LOCATION: Right lower quadrant PROCEDURE: 1.) Conscious sedation with continuous EKG and oximetry monitoring. 2.) EKG and oximetry remained stable throughout the procedure. PROCEDURE : 1. CT guided drainage of the right lower quadrant 2. Conscious sedation with continuous EKG and oximetry monitoring. The risks, benefits and alternatives to the procedure were explained and verbal and written consent was obtained. Using automated exposure control and adjustment of the mA and/or kV according to patient size, radiation dose was kept as low as reasonably achievable to obtain optimal diagnostic quality images. The site was prepped in sterile fashion. Full sterile technique was used, including cap, mask, sterile gloves and gown and a large sterile sheet. Hand hygiene and 2% chlorhexidine and/or betadine/alcohol prep was utilized per protocol for cutaneous antisepsis. The skin and subcutaneous tissues were infiltrated with local anesthetic solution. DICOM format image data is available electronically for review and comparison. Using CT guidance the prescribed site was localized. Drainage was performed using the prescribed catheter The patient tolerated the procedure well and there were no complications. Conscious sedation was performed with the prescribed dosages and duration as above in the presence of an independent trained radiology nurse to assist in the monitoring of the patient. EKG and oximetry remained stable throughout the procedure. The patient tolerated the procedure well and there were no complications. The patient was sent to post anesthesia recovery in stable condition. CONCLUSION: Uncomplicated CT guided drainage of the abscess which appears to have decreased in size. 14 Beninese catheter placed. There is extensive inflammation and possibility of appendicitis remains high in the differential. Andrade Breaux MD on May 21, 2017 at 16:00 Board Certified Radiologist. This report was verified electronically. Medications and IVs Current Medications Vancomycin HCl 1000 mg/Sodium Chloride 250 ml @ 250 mls/hr Q12H IV Last administered on 05/22/17 20:57; Start 05/20/17 at 21:00 Piperacillin Sod/ Tazobactam Sod 100 ml @ 200 mls/hr Q6H IV Last administered on 05/23/17 05:05; Start 05/21/17 at 00:00 Sodium Chloride (NS Flush) 2 ml UNSCH PRN IV FLUSH FLUSH AFTER USING IV ACCESS ; Start 05/20/17 at 18:45; Status UNV Sodium Chloride (NS Flush) 2 ml BID IV FLUSH ; Start 05/20/17 at 21:00; Status UNV Naloxone HCl (Narcan Inj) 0.4 mg UNSCH PRN IV PUSH SEE LABEL COMMENTS; Start 05/20/17 at 18:45 Senna/Docusate Sodium (Karo-Colace) 1 tab BID PO ; Start 05/20/17 at 21:00; Status UNV Magnesium Hydroxide (Milk Of Magnesia Liq) 30 ml Q12H PRN PO MILD - MODERATE CONSTIPATION; Start 05/20/17 at 18:45; Status UNV Sennosides (Senokot) 17.2 mg Q12H PRN PO MODERATE - SEVERE CONSTIPATION; Start 05/20/17 at 18:45; Status UNV Bisacodyl (Dulcolax Supp) 10 mg DAILY PRN RECTAL SEVERE CONSITIPATION; Start 05/20/17 at 18:45 Lactulose (Lactulose Liq) 30 ml DAILY PRN PO SEVERE CONSITIPATION; Start at 18:45 Sodium Chloride 1,000 ml @ 75 mls/hr [id number] IV Last administered on 20:20; Start 05/20/17 at 20:00; Stop 05/20/17 at 23:36; Status DC Sodium Chloride (NS Flush) 2 ml UNSCH PRN IV FLUSH FLUSH AFTER USING IV ACCESS ; Start 05/20/17 at 18:45 Sodium Chloride (NS Flush) 2 ml BID IV FLUSH Last administered on 05/20/17 20: 20; Start 05/20/17 at 21:00 Acetaminophen (Tylenol) 650 mg Q4H PRN PO TEMP > 100.4 Last administered on 06:27; Start 05/20/17 at 18:45 Ondansetron HCl (Zofran Inj) 4 mg Q6H PRN IVP NAUSEA OR VOMITING Last administered on 05/20/17 22:12; Start 05/20/17 at 18:45 Prochlorperazine (Compazine Supp) 25 mg Q12H PRN RECTAL NAUSEA OR VOMITING; Start 05/20/17 at 18:45 Acetaminophen (Tylenol) 650 mg Q6H PRN PO PAIN SCALE 1 TO 2; Start 05/20/17 at 18:45 Oxycodone/ Acetaminophen (Percocet 5-325 Mg) 1 tab Q6H PRN PO PAIN SCALE 3 TO 5; Start 05/20/17 at 18:45 Oxycodone/ Acetaminophen (Percocet 10-325 Mg) 1 tab Q6H PRN PO PAIN SCALE 6 TO 10 Last administered on 05/23/17 05:05; Start 05/20/17 at 18:45 Morphine Sulfate (Morphine Inj) 2 mg Q3H PRN IV PUSH Pain 3-5; if unable to take PO; Start 05/20/17 at 18:45 Morphine Sulfate (Morphine Inj) 4 mg Q3H PRN IV PUSH Pain 6-10;if unable to take PO; Start 05/20/17 at 18:45 Naloxone HCl (Narcan Inj) 0.4 mg UNSCH PRN IV PUSH SEE LABEL COMMENTS; Start 05/20/17 at 18:45 Senna/Docusate Sodium (Karo-Colace) 1 tab BID PO Last administered on 10:15; Start 05/20/17 at 21:00 Magnesium Hydroxide (Milk Of Magnesia Liq) 30 ml Q12H PRN PO MILD - MODERATE CONSTIPATION; Start 05/20/17 at 18:45 Sennosides (Senokot) 17.2 mg Q12H PRN PO MODERATE - SEVERE CONSTIPATION; Start 05/20/17 at 18:45 Bisacodyl (Dulcolax Supp) 10 mg DAILY PRN RECTAL SEVERE CONSITIPATION; Start 05/20/17 at 18:45; Status UNV Lactulose (Lactulose Liq) 30 ml DAILY PRN PO SEVERE CONSITIPATION; Start at 18:45; Status UNV Alprazolam (Xanax) 0.25 mg Q4H PRN PO ANXIETY Last administered on 05/22/17 00:24; Start 05/20/17 at 19:00 Fluoxetine HCl (PROzac) 40 mg DAILY PO Last administered on 05/23/17 10:14; Start 05/21/17 at 09:00 Diphenhydramine HCl (Benadryl) 50 mg HS PRN PO INSOMNIA; Start 05/20/17 at 22: 15 Sodium Chloride 1,000 ml @ 75 mls/hr [id number] IV Last administered on 20:58; Start 05/20/17 at 23:30 Fentanyl Citrate (fentaNYL INJ) 200 mcg STK-MED ONCE .ROUTE Last administered on 05/21/17 14:50; Start 05/21/17 at 13:24; Stop 05/21/17 at 13:25; Status DC Midazolam HCl (Versed Inj) 5 mg STK-MED ONCE .ROUTE Last administered on 14:50; Start 05/21/17 at 13:24; Stop 05/21/17 at 13:25; Status DC Lidocaine HCl (Xylocaine 1% Inj) 20 ml STK-MED ONCE .ROUTE ; Start 05/21/17 at 13:30; Stop 05/21/17 at 13:31; Status DC Fentanyl Citrate (fentaNYL INJ) 100 mcg STK-MED ONCE .ROUTE Last administered on 05/21/17 15:20; Start 05/21/17 at 15:20; Stop 05/21/17 at 15:21; Status DC Sodium Chloride (NS Inj) 10 ml BID IRRIGATION Last administered on 05/22/17 20:58; Start 05/21/17 at 21:00 Potassium Chloride (KCl) 40 meq DAILY PO Last administered on 05/23/17 10:14 ; Start 05/21/17 at 18:00 Urinary Catheter: No Vascular Central Line Catheter: No A/P Problem List: (1) Abdominal abscess ICD Code: K65.1 - Peritoneal abscess (2) Leukocytosis ICD Code: D72.829 - Elevated white blood cell count, unspecified (3) Irritable bowel syndrome ICD Code: K58.9 - Irritable bowel syndrome without diarrhea (4) Hyponatremia ICD Code: E87.1 - Hypo-osmolality and hyponatremia (5) Transaminitis ICD Code: R74.0 - Nonspecific elevation of levels of transaminase and lactic acid dehydrogenase [LDH] (6) Hypothermia ICD Code: T68.XXXA - Hypothermia, initial encounter Assessment and Plan 52-year-old male with a history of irritable bowel syndrome who presents to the ED and [facility] on 05/20/2017 for evaluation of abdominal pain with fever, nausea, and diarrhea and is transferred to the main hospital for management of abdominal abscess. Abdominal abscess Sepsis - Leukocytosis with bandemia secondary to infection, tachycardia, fevers History of irritable bowel syndrome - Antibiotics: Zosyn 4.5 g IV every 6 hours and vancomycin IV with pharmacy consultation for therapeutic monitoring and dosing - Consult general surgery - assistance appreciated - Consult invasive radiology department had drain placed by them today - Acetaminophen 650 mg every 4 hours by mouth when necessary fever greater than 100.4 with limit of 3000 mg per 24-hour period - Zofran 4 mg IV every 6 hours when necessary nausea or vomiting - Morphine 2-4 mg IV every 3 hours as needed for pain if unable to take by mouth - Percocet p.o. PRN pain - will check lactic acid Had drain placed in right lower quadrant by interventional radiology today May 21 Hyponatremia - Sodium 132 on admission with no prior labs for comparison - Replace with IV fluids normal saline at 75 cc per hour - Recheck CMP in a.m. and follow sodium level results Transaminitis - AST 88 - ALT 152 - recheck CMP in a.m. and follow results - consider hepatitis panel if persists Hypokalemia Will replace HYPOTHERMIA ALL LAST NIGHT WITH CHILLS THROUGHOUT THE DATABASE CONSULTANT TODAY HOPEFULLY HOME TOMORROW IF CLEARED BY SURGERY ON PO AUGMENTIN 875MG PO BID FOR AT LEAST 14 DAY DVT prophylaxis - SCDs/TEDs . Discussed with patient and RN and significant other AM LABS Discharge Planning Continue current antibiotics and drain Pain control Diet Has been advanced to REGULAR DIET HOPEFULLY HOME TOMORROW ON PO AUGMENTIN 875MG BID FOR 14 DAYS HOLD DUE TO HYPOTHERMIA Problem Qualifiers (1) Leukocytosis: Qualified Codes: D72.825 - Bandemia (2) Irritable bowel syndrome: Qualified Codes: K58.0 - Irritable bowel syndrome with diarrhea Yuri Watson DO May 23, 2017 11:50
--- NOTE | 2017-05-23 15:03 | HHI.PR ---
Subjective Subjective Notes Resting in bed No issues Objective Vitals/I&O Vital Signs Date Time Temp Pulse Resp B/P (MAP) Pulse Ox O2 Delivery O2 Flow Rate FiO2 05/23/17 12:00 96.7 78 17 100/59 (73) 97 05/22/17 22:03 21 Labs Laboratory Tests Test 05/23/17 08:52 White Blood Count 8.7 Red Blood Count 3.76 Hemoglobin 11.6 Hematocrit 34.5 Mean Corpuscular Volume 91.7 Mean Corpuscular Hemoglobin 30.7 Mean Corpuscular Hemoglobin Concent 33.5 Red Cell Distribution Width 13.3 Platelet Count 562 Mean Platelet Volume 7.0 Neutrophils (%) (Auto) 71.4 Lymphocytes (%) (Auto) 18.9 Monocytes (%) (Auto) 7.8 Eosinophils (%) (Auto) 1.3 Basophils (%) (Auto) 0.6 Neutrophils # (Auto) 6.2 Lymphocytes # (Auto) 1.6 Monocytes # (Auto) 0.7 Eosinophils # (Auto) 0.1 Basophils # (Auto) 0.1 CBC Comment AUTO DIFF Differential Comment AUTO DIFF CONFIRMED Blood Urea Nitrogen 7 Creatinine 0.83 Random Glucose 96 Total Protein 6.8 Albumin 2.4 Calcium Level 8.6 Phosphorus Level 3.0 Magnesium Level 2.4 Alkaline Phosphatase 95 Aspartate Amino Transf (AST/SGOT) 61 Alanine Aminotransferase (ALT/SGPT) 137 Total Bilirubin 0.2 Sodium Level 140 Potassium Level 3.8 Chloride Level 106 Carbon Dioxide Level 25.6 Anion Gap 8 Estimat Glomerular Filtration Rate 97 Hepatitis A IgM Antibody NEGATIVE Hepatitis B Surface Antigen NEGATIVE Hepatitis B Core IgM Antibody NEGATIVE Hepatitis C Antibody NEGATIVE Date/Time Source Procedure Growth Status 05/22/17 10:36 Wound Abdomen Gram Stain - Final Resulted 05/22/17 10:36 Wound Culture - Preliminary Gram Negative Michele Strep Not A,B D Resulted Cardiovascular: Regular Lungs: Clear Abdomen: Non-distended, Other (minimal RLQ tenderness at drain insertion site ; IR placed drain with thick fluid ) Extremities: No edema A/P Assessment and Plan 52 year old male s/p perc drain RLQ abscess, likely perforated appendicitis -Tolerating regular diet -WBC continues to trend down -Will plan to transition to PO antibiotics tomorrow AM -DC IVF -Await culture results -Case management for HHC for drain assist. Alena Hurtado May 23, 2017 15:03
[2017-05-23] MEDS: ALPRAZolam 0.25 MG TAB PO PRN (21:21)
[2017-05-24] VITALS (7 sets, daily range): BP systolic 109–118; BP diastolic 60–78; PULSE 71–79; RESP 17–20; TEMP 95.7–98.2; O2SAT 94–98
[2017-05-24] MEDS: PIPERACIL-TAZO 4.5 GM PREMIX 100 ML IV SCH ×2 (00:10→05:18)
[2017-05-24] MEDS: SODIUM CHLOR 0.9% 1000 ML INJ 1,000 ML IV SCH (04:50)
[2017-05-24 07:35] LABS: AUTOMATED NEUTROPHIL # 6.1 TH/MM3 (1.8-7.7); BASOPHIL % 0.5 % (0.0-2.0); EOSINOPHIL # 0.1 TH/MM3 (0-0.4); EOSINOPHIL % 1.7 % (0.0-4.0); HEMATOCRIT 33.7 % (39.0-51.0); LYMPH % 16.8 % (9.0-44.0); LYMPHOCYTE # 1.4 TH/MM3 (1.0-4.8); MEAN CELL VOLUME 91.3 FL (80.0-100.0); MEAN CORPUSCULAR HGB CONC 33.9 % (32.0-36.0); MONO % 8.3 % (0.0-8.0); NEUT % 72.7 % (16.0-70.0); PLATELET COUNT 589 TH/MM3 (150-450); RED BLOOD COUNT 3.69 MIL/MM3 (4.50-5.90); RED CELL DISTRIBUTION WIDTH 13.6 % (11.6-17.2); WHITE BLOOD COUNT 8.4 TH/MM3 (4.0-11.0)
[2017-05-24 07:38] LABS: HEMO FLAGS AUTO DIFF
[2017-05-24 08:05] LABS: ANION GAP 5 MEQ/L (5-15); AST (GOT) 47 U/L (15-37); BICARBONATE 26.8 MEQ/L (21.0-32.0); BLOOD UREA NITROGEN 5 MG/DL (7-18); CHLORIDE 109 MEQ/L (98-107); GLOMERULAR FILTRATION RATE 82 ML/MIN (>89); MAGNESIUM 2.4 MG/DL (1.5-2.5); POTASSIUM 4.3 MEQ/L (3.5-5.1); SODIUM (NA) 141 MEQ/L (136-145)
--- NOTE | 2017-05-24 08:23 | HHI.PR ---
Subjective Subjective Notes anxious to go home. Feels fine, tolerating po no nausea. Voids, has BMs Objective Vitals/I&O Vital Signs Date Time Temp Pulse Resp B/P (MAP) Pulse Ox O2 Delivery O2 Flow Rate FiO2 05/24/17 08:00 95.7 76 17 109/72 (84) 94 05/22/17 22:03 21 Labs Laboratory Tests Test 05/23/17 08:52 05/24/17 06:51 White Blood Count 8.7 8.4 Red Blood Count 3.76 3.69 Hemoglobin 11.6 11.4 Hematocrit 34.5 33.7 Mean Corpuscular Volume 91.7 91.3 Mean Corpuscular Hemoglobin 30.7 31.0 Mean Corpuscular Hemoglobin Concent 33.5 33.9 Red Cell Distribution Width 13.3 13.6 Platelet Count 562 589 Mean Platelet Volume 7.0 6.6 Neutrophils (%) (Auto) 71.4 72.7 Lymphocytes (%) (Auto) 18.9 16.8 Monocytes (%) (Auto) 7.8 8.3 Eosinophils (%) (Auto) 1.3 1.7 Basophils (%) (Auto) 0.6 0.5 Neutrophils # (Auto) 6.2 6.1 Lymphocytes # (Auto) 1.6 1.4 Monocytes # (Auto) 0.7 0.7 Eosinophils # (Auto) 0.1 0.1 Basophils # (Auto) 0.1 0.0 CBC Comment AUTO DIFF AUTO DIFF Differential Comment AUTO DIFF CONFIRMED Blood Urea Nitrogen 7 5 Creatinine 0.83 0.96 Random Glucose 96 90 Total Protein 6.8 Albumin 2.4 2.3 Calcium Level 8.6 8.1 Phosphorus Level 3.0 Magnesium Level 2.4 2.4 Alkaline Phosphatase 95 Aspartate Amino Transf (AST/SGOT) 61 47 Alanine Aminotransferase (ALT/SGPT) 137 Total Bilirubin 0.2 Sodium Level 140 141 Potassium Level 3.8 4.3 Chloride Level 106 109 Carbon Dioxide Level 25.6 26.8 Anion Gap 8 5 Estimat Glomerular Filtration Rate 97 82 Hepatitis A IgM Antibody NEGATIVE Hepatitis B Surface Antigen NEGATIVE Hepatitis B Core IgM Antibody NEGATIVE Hepatitis C Antibody NEGATIVE Date/Time Source Procedure Growth Status 05/22/17 10:36 Wound Abdomen Gram Stain - Final Resulted 05/22/17 10:36 Wound Culture - Preliminary Gram Negative Michele Strep Not A,B D Resulted Abdomen: Non-distended, Non-tender, Other (drainage decreasing, still purulent. ) Extremities: No edema, Perfused A/P Assessment and Plan s/p perc drain RLQ abscess, likely perforated appendicitis. Change abx to augmentin. Stop IVFs. Strep and GNRs. Possible Dc home in AM. Case management for drain care. Follow up in my office next week. Alan Hankins MD May 24, 2017 08:23
[2017-05-24 08:24] LABS: ALKALINE PHOSPHATASE 81 U/L (45-117); ALT (GPT) 121 U/L (12-78); FREE T4 1.46 NG/DL (0.76-1.46); TOTAL BILIRUBIN ADULT 0.2 MG/DL (0.2-1.0)
[2017-05-24 08:37] LABS: BANDS 2 % (0-6); BASOPHILS 1 % (0-2); EOSINOPHILS 1 % (0-4); METAMYELOCYTES 1 % (0-1); MYELOCYTES 1 % (0-0); NEUTROPHIL # MANUAL DIFF 5.9 TH/MM3 (1.8-7.7); POLYS (SEG NEUTROPHILS) 66 % (16-70); WBC DIFF SAMPLE 100
[2017-05-24 08:38] LABS: PLATELET ESTIMATE SMEAR HIGH (NORMAL); PLATELET MORPHOLOGY NORMAL (NORMAL); SCAN/DIFF FINAL DIFF MANUAL
[2017-05-24] MEDS: DOCUSATE SODIUM 50 MG/SENNA 8.6 MG TAB PO SCH ×2 (08:39→20:44)
[2017-05-24] MEDS: FLUoxetine HCL 20 MG CAP PO SCH (08:40)
[2017-05-24] MEDS: POTASSIUM CHLORIDE 10 MEQ CONTROLLED RELEASE TAB PO SCH (08:40)
[2017-05-24] MEDS: SODIUM CHLORIDE 0.9% FLUSH 10 ML FLUSH IV FLUSH SCH ×2 (08:41→20:45)
[2017-05-24] MEDS: SODIUM CHLORIDE 0.9% 10 ML VIAL IRRIGATION SCH ×2 (08:41→20:46)
[2017-05-24] MEDS: AMOXICILLIN/CLAVULANATE K 875 MG TAB PO SCH ×2 (11:21→20:45)
--- NOTE | 2017-05-24 14:00 | HHI.PR ---
Subjective Remarks Patient seen this morning around 10 AM. Says he is feeling all right. Reports pain is controlled. Denies any nausea or vomiting. Positive bowel movement. Patient denies any chills. Anxious to go home. Objective Vital Signs Date Time Temp Pulse Resp B/P (MAP) Pulse Ox O2 Delivery O2 Flow Rate FiO2 05/24/17 12:00 98.0 73 17 113/78 (90) 97 05/24/17 08:00 95.7 76 17 109/72 (84) 94 05/24/17 05:17 97 05/24/17 04:16 96.8 79 20 117/60 (79) 97 05/24/17 00:14 97.8 79 20 118/69 (85) 98 05/23/17 20:13 96.9 89 20 115/74 (88) 96 05/23/17 20:03 72 05/23/17 16:00 97.5 70 17 108/66 (80) 98 I/O 05/23/17 05/23/17 05/23/17 05/24/17 05/24/17 05/24/17 06:59 14:59 22:59 06:59 14:59 22:59 Intake Total 480 ml 960 ml 880 ml 850 ml Output Total 30 ml 30 ml 10 ml Balance 450 ml 930 ml 870 ml 850 ml Intake Oral 480 ml 960 ml 780 ml IV Total 100 ml 850 ml Drainage Total 30 ml 30 ml 10 ml # Voids 4 5 4 # Bowel Movements 0 1 Result Diagram: 05/24/17 0651 05/24/17 0651 Objective Remarks GENERAL: Patient sitting up in bed. Appears couple. Alert and oriented 3. SKIN: Warm and dry. HEAD: Normocephalic. EYES: No scleral icterus. No injection or drainage. NECK: Supple, trachea midline. No JVD or lymphadenopathy. CARDIOVASCULAR: Regular rate and rhythm without murmurs, gallops, or rubs. RESPIRATORY: Breath sounds equal bilaterally. No accessory muscle use. GASTROINTESTINAL: Abdomen soft, non-tender, nondistended. SYBIL drain in place. MUSCULOSKELETAL: No cyanosis, or edema. BACK: Nontender without obvious deformity. No CVA tenderness. A/P Assessment and Plan ===05/24/17 discussed with correctional casework specialist. Home health has been set up. As per general surgery, patient will likely go home with home health tomorrow morning. //Hyponatremia. Sodium 141. Resolved //Hypothermia. Still with temperature 95.7, however no chills. No leukocytosis currently. //Abdominal abscess. Continue Augmentin. We'll add Cipro due to Citrobacter 52-year-old male with a history of irritable bowel syndrome who presents to the ED and [facility] a on 05/20/2017 for evaluation of abdominal pain with fever, nausea, and diarrhea and is transferred to the main hospital for management of abdominal abscess. //Abdominal abscess Sepsis - Leukocytosis with bandemia secondary to infection, tachycardia, fevers History of irritable bowel syndrome - Antibiotics: Zosyn 4.5 g IV every 6 hours and vancomycin IV with pharmacy consultation for therapeutic monitoring and dosing - Consult general surgery - assistance appreciated - Consult invasive radiology department had drain placed by them today - Acetaminophen 650 mg every 4 hours by mouth when necessary fever greater than 100.4 with limit of 3000 mg per 24-hour period - Zofran 4 mg IV every 6 hours when necessary nausea or vomiting - Morphine 2-4 mg IV every 3 hours as needed for pain if unable to take by mouth - Percocet p.o. PRN pain - will check lactic acid Had drain placed in right lower quadrant by interventional radiology today May 21 /Hyponatremia - Sodium 132 on admission with no prior labs for comparison - Replace with IV fluids normal saline at 75 cc per hour - Recheck CMP in a.m. and follow sodium level results = Resolved. //Transaminitis - AST 88 - ALT 152 - recheck CMP in a.m. and follow results - consider hepatitis panel if persists //Hypokalemia -resolved. //HYPOTHERMIA = Still with temperature 95.7, however no chills. No leukocytosis currently. //DVT prophylaxis - SCDs/TEDs Discharge Planning As per surgery. Patient will likely go home tomorrow with home health for SYBIL drain care, Augmentin, Cipro. Parviz Bullock MD May 24, 2017 14:00
[2017-05-24 16:04] LABS: HEMOGLOBIN A1b 1.7 %; HEMOGLOBIN Ao 85.1 %; HEMOGLOBIN P3 3.8 %
[2017-05-24] MEDS: CIPROFLOXACIN 500 MG TAB PO SCH ×2 (16:31→20:44)
[2017-05-25] VITALS: BP 108/72; PULSE 76; RESP 17; TEMP 98.1; O2SAT 96
[2017-05-25 04:00] VITALS: BP 114/76; PULSE 72; RESP 17; TEMP 98.6; O2SAT 96
[2017-05-25] MEDS: DOCUSATE SODIUM 50 MG/SENNA 8.6 MG TAB PO SCH (06:54)
[2017-05-25 08:00] VITALS: BP 113/75; PULSE 85; RESP 17; TEMP 97.8; O2SAT 95
[2017-05-25] MEDS ORDERED: AMOX875T2 PO (08:05)
[2017-05-25] MEDS: AMOXICILLIN/CLAVULANATE K 875 MG TAB PO SCH (08:44)
[2017-05-25] MEDS: SODIUM CHLORIDE 0.9% 10 ML VIAL IRRIGATION SCH (08:45)
[2017-05-25] MEDS: SODIUM CHLORIDE 0.9% FLUSH 10 ML FLUSH IV FLUSH SCH (08:45)
[2017-05-25] MEDS: CIPROFLOXACIN 500 MG TAB PO SCH (08:45)
[2017-05-25] MEDS: FLUoxetine HCL 20 MG CAP PO SCH (08:45)
[2017-05-25] MEDS: POTASSIUM CHLORIDE 10 MEQ CONTROLLED RELEASE TAB PO SCH (08:45)
--- NOTE | 2017-05-25 08:45 | HHI.PR ---
Subjective Subjective Notes Resting in bed No issues Ready to go home Objective Vitals/I&O Vital Signs Date Time Temp Pulse Resp B/P (MAP) Pulse Ox O2 Delivery O2 Flow Rate FiO2 05/25/17 08:00 97.8 85 17 113/75 (88) 95 05/22/17 22:03 21 Labs Date/Time Source Procedure Growth Status 05/22/17 10:36 Wound Abdomen Gram Stain - Final Complete 05/22/17 10:36 Wound Culture - Final Citrobacter Freundii Klebsiella Pneumoniae Strep Not A,B D Complete Cardiovascular: Regular Lungs: Clear Abdomen: Other (drain in place; minimal brown drainage ) Extremities: No edema A/P Assessment and Plan 52 year old male s/p perc drain RLQ abscess, likely perforated appendicitis -Tolerating regular diet -Tolerating PO antibiotics -Case management for [facility] for drain assist. -GS clear for DC -Follow up with Dr. Hankins on Sunday Alena Hurtado May 25, 2017 08:45
[2017-05-25] MEDS ORDERED: CIPR-9 PO (10:51)
--- NOTE | 2017-05-25 15:48 | RADRPT ---
EXAM DATE/TIME: 05/25/2017 15:14 [facility] COMPARISON: CT ABDOMEN & PELVIS W CONTRAST, May 20, 2017, 16:14. INDICATIONS : Evaluate abscess drain. ORAL CONTRAST: No oral contrast ingested. RADIATION DOSE: 8.59 CTDIvol (mGy) MEDICAL HISTORY : None SURGICAL HISTORY : None. ENCOUNTER: Initial ACUITY: 1 week PAIN SCALE: 0/10 LOCATION: lower quadrant TECHNIQUE: Volumetric scanning of the abdomen was performed. Using automated exposure control and adjustment of the mA and/or kV according to patient size, radiation dose was kept as low as reasonably achievable to obtain optimal diagnostic quality images. DICOM format image data is available electronically for review and comparison. FINDINGS: A drainage catheter is seen involving the right lower quadrant. No residual fluid surrounding the fely in. There is mild stranding in the adjacent fat. No dilatation of the bowel. No free air or free flui d. No new abscess observed. CONCLUSION: 1. No residual abscess observed. As requested the drainage catheter was ligated and removed. Daniel Cummins Jr., MD on May 25, 2017 at 15:43 Board Certified Radiologist. This report was verified electronically.
--- NOTE | 2017-05-25 21:32 | HHI.DS ---
Discharge Summary Admission Date May 20, 2017 at 19:33 Discharge Date: May 25, 2017 Admitting Diagnosis Abdominal abscess, colitis . (1) Abdominal abscess ICD Code: K65.1 - Peritoneal abscess (2) Leukocytosis ICD Code: D72.829 - Elevated white blood cell count, unspecified (3) Irritable bowel syndrome ICD Code: K58.9 - Irritable bowel syndrome without diarrhea (4) Hyponatremia ICD Code: E87.1 - Hypo-osmolality and hyponatremia (5) Transaminitis ICD Code: R74.0 - Nonspecific elevation of levels of transaminase and lactic acid dehydrogenase [LDH] (6) Hypothermia ICD Code: T68.XXXA - Hypothermia, initial encounter Procedures CT Assisted Abscess Drain Signed EXAM DATE/TIME: 05/21/2017 14:54 [facility] COMPARISON: No previous studies available for comparison. INDICATIONS : Abdominal abscess. SEDATION TIME: 30 MEDICATION(S): 1.) 5 mg midazolam (Versed) IV 2.) 250 mcg fentanyl (Sublimaze) IV DEVICE(S): 1.) 14 Fr catheter FLUID: Total volume of 20 cc of cloudy, yellow fluid was removed. Fluid was discarded. MEDICAL HISTORY : Irritable bowel syndrome. SURGICAL HISTORY : neck. ENCOUNTER: Initial ACUITY: 1 day PAIN SCORE: 0/10 LOCATION: Right lower quadrant PROCEDURE: 1.) Conscious sedation with continuous EKG and oximetry monitoring. 2.) EKG and oximetry remained stable throughout the procedure. PROCEDURE : 1. CT guided drainage of the right lower quadrant 2. Conscious sedation with continuous EKG and oximetry monitoring. The risks, benefits and alternatives to the procedure were explained and verbal and written consent was obtained. Using automated exposure control and adjustment of the mA and/or kV according to patient size, radiation dose was kept as low as reasonably achievable to obtain optimal diagnostic quality images. The site was prepped in sterile fashion. Full sterile technique was used, including cap, mask, sterile gloves and gown and a large sterile sheet. Hand hygiene and 2% chlorhexidine and/or betadine/alcohol prep was utilized per protocol for cutaneous antisepsis. The skin and subcutaneous tissues were infiltrated with local anesthetic solution. DICOM format image data is available electronically for review and comparison. Using CT guidance the prescribed site was localized. Drainage was performed using the prescribed catheter The patient tolerated the procedure well and there were no complications. Conscious sedation was performed with the prescribed dosages and duration as above in the presence of an independent trained radiology nurse to assist in the monitoring of the patient. EKG and oximetry remained stable throughout the procedure. The patient tolerated the procedure well and there were no complications. The patient was sent to post anesthesia recovery in stable condition. CONCLUSION: Uncomplicated CT guided drainage of the abscess which appears to have decreased in size. 14 [place] catheter placed. There is extensive inflammation and possibility of appendicitis remains high in the differential. Andrade Breaux MD on May 21, 2017 at 16:00 Board Certified Radiologist. This report was verified electronically. Brief History - From Admission Mr. Wagner is a pleasant 52-year-old male with a past medical history of irritable bowel syndrome who presented to the emergency room in [place] on 2016 complaining of fever, nausea, and diarrhea. CT of the abdomen and pelvis showed large abscess in the right lower quadrant with associated inflammatory changes. Abnormal bowel wall thickening involving the ascending colon and distal ileum were identified. General surgery was consulted and requested transfer to the main campus for interventional radiology percutaneous drainage as well as IV antibiotic therapy. The patient is seen in his hospital room. He tells me he thought he had a "stomach bug" for the past week. He reports fevers as high as 105 accompanied by one day of chills at the beginning, nausea throughout, no vomiting, diarrhea for 7 days with 2-3 episodes today and 5-10 episodes occurring a couple of days ago. The stool is described as watery, without any bloody appearance or melena. He denies dysuria, hematuria, shortness of breath, or chest pain. He reports severe right sided abdominal pain that is currently rated 7 out of 10 and is worse with light palpation and not relieved by anything as of yet. This pain has been going on for 7 days and has gotten progressively worse. CBC/BMP: 05/24/17 0651 05/24/17 0651 Significant Findings Laboratory Tests Test 05/23/17 08:52 05/24/17 06:51 Red Blood Count 3.76 MIL/MM3 (4.50-5.90) 3.69 MIL/MM3 (4.50-5.90) Hemoglobin 11.6 GM/DL (13.0-17.0) 11.4 GM/DL (13.0-17.0) Hematocrit 34.5 % (39.0-51.0) 33.7 % (39.0-51.0) Platelet Count 562 TH/MM3 (150-450) 589 TH/MM3 (150-450) Neutrophils (%) (Auto) 71.4 % (16.0-70.0) 72.7 % (16.0-70.0) Albumin 2.4 GM/DL (3.4-5.0) 2.3 GM/DL (3.4-5.0) Aspartate Amino Transf (AST/SGOT) 61 U/L (15-37) 47 U/L (15-37) Alanine Aminotransferase (ALT/SGPT) 137 U/L (12-78) 121 U/L (12-78) Mean Platelet Volume 6.6 FL (7.0-11.0) Monocytes (%) (Auto) 8.3 % (0.0-8.0) Myelocytes 1 % (0-0) Platelet Estimate HIGH (NORMAL) Blood Urea Nitrogen 5 MG/DL (7-18) Calcium Level 8.1 MG/DL (8.5-10.1) Chloride Level 109 MEQ/L (98-107) Estimat Glomerular Filtration Rate 82 ML/MIN (>89) Imaging Last Impressions Abdomen CT 05/25/17 0000 Signed Impressions: Service Date/Time: Thursday, May 25, 2017 15:14 - CONCLUSION: 1. No residual abscess observed. As requested the drainage catheter was ligated and removed. Daniel Cummins Jr., MD Abscess Drainage CT 05/21/17 0000 Signed Impressions: Service Date/Time: Sunday, May 21, 2017 14:54 - CONCLUSION: Uncomplicated CT guided drainage of the abscess which appears to have decreased in size. 14 [place] catheter placed. There is extensive inflammation and possibility of appendicitis remains high in the differential. Andrade Breaux MD PE at Discharge GENERAL: patient sitting up in bed alert and oriented 4. SKIN: Warm and dry. HEAD: Normocephalic. EYES: No scleral icterus. No injection or drainage. NECK: Supple, trachea midline. No JVD. CARDIOVASCULAR: Regular rate and rhythm without murmurs, gallops, or rubs. RESPIRATORY: Breath sounds equal bilaterally. No accessory muscle use. GASTROINTESTINAL: Abdomen soft, non-tender, nondistended. abdominal drain. MUSCULOSKELETAL: No cyanosis, or edema. BACK: Nontender without obvious deformity. No CVA tenderness. Pt update on day of discharge Patient seen this morning around 10 AM. Says he feels well. Denies any chest pain or shortness of breath. Reports pain is controlled. Hospital Course Patient was admitted with sepsis, CT abdomen as above with abscess, which underwent placement of drainage catheter. Patient was placed on broad-spectrum IV antibiotics. General surgery was consult and management during this hospitalization. Abscess culture returned Citrobacter, Klebsiella, as well as strep, not a, B, D. Patient was placed on Cipro for coverage of Citrobacter and Klebsiella, as well as Augmentin for coverage of strep, as well as anaerobes. Patient will follow-up with general surgery as outpatient. For problem-based summary from most recent progress note, Please see below. ===05/24/17 discussed with dependency case manager. Home health has been set up. As per general surgery, patient will likely go home with home health tomorrow morning. //Hyponatremia. Sodium 141. Resolved //Hypothermia. Still with temperature 95.7, however no chills. No leukocytosis currently. //Abdominal abscess. Continue Augmentin. We'll add Cipro due to Citrobacter 52-year-old male with a history of irritable bowel syndrome who presents to the ED and [facility] on 05/20/2017 for evaluation of abdominal pain with fever, nausea, and diarrhea and is transferred to the main hospital for management of abdominal abscess. //Abdominal abscess Sepsis - Leukocytosis with bandemia secondary to infection, tachycardia, fevers History of irritable bowel syndrome - Antibiotics: Zosyn 4.5 g IV every 6 hours and vancomycin IV with pharmacy consultation for therapeutic monitoring and dosing - Consult general surgery - assistance appreciated - Consult invasive radiology department had drain placed by them today - Acetaminophen 650 mg every 4 hours by mouth when necessary fever greater than 100.4 with limit of 3000 mg per 24-hour period - Zofran 4 mg IV every 6 hours when necessary nausea or vomiting - Morphine 2-4 mg IV every 3 hours as needed for pain if unable to take by mouth - Percocet p.o. PRN pain - will check lactic acid Had drain placed in right lower quadrant by interventional radiology today May 21 //Hyponatremia - Sodium 132 on admission with no prior labs for comparison - Replace with IV fluids normal saline at 75 cc per hour - Recheck CMP in a.m. and follow sodium level results = Resolved. //Transaminitis - AST 88 - ALT 152 - recheck CMP in a.m. and follow results - consider hepatitis panel if persists //Hypokalemia -resolved. //HYPOTHERMIA = Still with temperature 95.7, however no chills. No leukocytosis currently. //DVT prophylaxis - SCDs/TEDs Pt Condition on Discharge: Good Discharge Disposition: Disch w/ Home Health Serv Discharge Time: > 30 minutes Discharge Instructions DIET: Follow Instructions for: As Tolerated, No Restrictions Activities you can perform: See Additionl Instruction Other Activity Instructions: Okay to shower; protect drain; pat dry when done No baths or swimming pools Follow up Referrals: Surgical - 05/30/17 with Alan Hankins MD New Medications: Amoxicillin-Clavulanate (Amoxicillin-Clavulanate) 875-125 mg Tab 875 MG PO Q12HR for Infection for 7 Days, TAB not for use in CrCl <30 mL/minute Ciprofloxacin (Cipro) 500 Mg Tab 500 MG PO Q12HR for Infection for 7 Days, #14 TAB Continued Medications: Acetaminophen (Tylenol) 325 Mg Tab 325 MG PO ONCE, #1 TAB 0 Refills Alprazolam (Alprazolam) 0.25 Mg Tab 0.25 MG PO Q4H PRN for ANXIETY, TAB 0 Refills Bismuth Subsalicylate (Pepto-Bismol) 262 Mg Chew 524 MG CHEW PRN for INDIGESTION OR UPSET STOMACH, TAB 0 Refills Fluoxetine (Prozac) 40 Mg Cap 40 MG PO DAILY, #30 CAP 0 Refills Parviz Bullock MD May 25, 2017 21:32
== END 2017-05-25 17:42 | disposition home health service (06) | DRG 871 ==
LOC: NEDDLT 19:26 → N07B 19:33
PROVIDERS: ADMIT Internal Medicine; ATTEND Internal Medicine
PROC: 0W9G30Z Drainage of Peritoneal Cavity with Drainage Device, Percutaneous Approach (ICD-10-PCS; principal; 2017-05-21)
PROC: 0WPGX0Z Removal of Drainage Device from Peritoneal Cavity, External Approach (ICD-10-PCS; 2017-05-25)
DX: A41.9 Sepsis, unspecified organism (principal); K65.1 Peritoneal abscess; E87.1 Hypo-osmolality and hyponatremia; K58.9 Irritable bowel syndrome, unspecified; R74.0 Nonspecific elevation of levels of transaminase and lactic acid dehydrogenase [LDH]; E87.6 Hypokalemia
CPT/HCPCS: 74150; 74177; 75989; 76937; 80053; 80074; 83036; 83690; 83735; 84100; 84439; 84443; 85007; 85025; 85027; 85610; 85730; 87070; 87077; 87186; 87205; 96374; C1769; J2250; J2405; J2543; J3010; J3370; J7030; J7050; Q9963; Q9967

== ENCOUNTER → 2017-07-18 | Day surgery (SDC) | payer MEDICARE ==
[~2017-07-18] MED LIST changes: +ACETAMINOPHEN 1000 MG/100 ML 100 ML IV ONE; +ACETAMINOPHEN/HYDROcodone 325 MG/5 MG TAB ONE; +AMOX875T2 PO; +BUPIVACAINE/EPINEPHRINE 0.25% PF 30 ML VIAL ONE; +CIPR-9 PO; +KETOROLAC TROMETHAMINE 30 MG/ML (IVP) VIAL IV PUSH ONE; +MEPERIDINE HCL 25 MG/ML VIAL ONE; +ONDANSETRON HCL 4 MG/2 ML VIAL IV PUSH ONE; +PROPOFOL 200 MG/20 ML AMP IV ONE; +ceFAZolin 2 GM PREMIX 50 ML ONE
--- NOTE | 2017-07-18 16:18 | TN ---
cc: DEJUAN SAAVEDRA M.D. DATE OF SURGERY 07/18/2017 PREOPERATIVE DIAGNOSIS History of appendicitis with abscess status post percutaneous drainage and intravenous antibiotic therapy. POSTOPERATIVE DIAGNOSES History of appendicitis with abscess status post percutaneous drainage and intravenous antibiotic therapy. PROCEDURE Laparoscopic appendectomy. SURGEON Dr. Dejuan Saavedra ANESTHESIA General INDICATIONS A 52-year-old gentleman who was recently hospitalized after he was discovered to have probable acute perforated appendicitis with intra-abdominal abscess. This was treated with percutaneous image guided drainage and intravenous antibiotics. The patient improved and was able to go home. He had a colonoscopy which demonstrated a single polyp within the cecum and an apparent patent appendiceal orifice. Plans were made for interval appendectomy after discussions of operative and nonoperative treatments were discussed. INTRAOPERATIVE FINDINGS Some chronic right lower quadrant inflammatory changes. Appendix removed and sent to pathology. ESTIMATED BLOOD LOSS Less than 10 ml. DESCRIPTION OF PROCEDURE IN DETAIL The patient identified as Sergio Wagner. He was taken to the operating room and placed in the supine position. Sequential compression devices were placed on bilateral lower extremities. Following induction of adequate general endotracheal anesthesia the patient's abdomen was prepped and draped in usual sterile fashion with Betadine. A time-out procedure was performed. Following completion of time-out procedure to everyone's satisfaction within the room, local anesthetic was infiltrated just above the umbilicus. A 2-3 cm transverse incision was carried out with scalpel and dissection continued posteriorly to the level of the midline fascia at the base of the umbilicus. The base of the umbilicus was retracted anteriorly. Supraumbilical midline fascia was incised with a scalpel and entry in the peritoneal cavity was facilitated with the surgeon's finger. The applied medical balloon Cynthia trocar was placed in the peritoneal cavity its balloon inflated and CO2 insufflation to level of 15 mmHg ensued. The patient was placed in slight Trendelenburg position turned to the left and two infraumbilical midline 5 mm trocars were placed in the peritoneal cavity under direct laparoscopic view after incision of the skin with a scalpel. Initial survey in the right lower quadrant showed some strands of scar tissue from the anterior peritoneum down into the right lower quadrant. The terminal ileum was relieved from the underlying appendix which was encased in fatty tissue. Photograph was taken. Appendix was then mobilized from surrounding tissues and chronic inflammation and the appendiceal mesentery were divided with a harmonic scalpel taking care to avoid injury to the terminal ileum, the cecum and the underlying vascular structures as well as the right ureter. The appendix was mobilized all way down to level of cecum. It narrowed at its juncture with the cecum. It was ligated with a 0-PDS Endoloop, amputated distal to this, placed into an Endo retriever bag and removed from the peritoneal cavity through the supraumbilical fascial port incision site and passed off the field for pathologic evaluation. Right lower quadrant was copiously irrigated with saline. Saline was suctioned out of right lower quadrant and the pelvis. No additional intra-abdominal abnormalities were identified. The gallbladder, liver, stomach, small bowel appeared normal. Urinary bladder appeared normal. A small amount of ooze in the area of dissection was covered in Frederic absorbable hemostatic agent. Trocars were removed under direct visualization. There was no evidence of bleeding from trocar sites. The abdomen was desufflated and the supraumbilical port was then removed. Supraumbilical fascial incision was closed with multiple interrupted 2-0 Vicryl sutures. The skin incisions were irrigated copiously with saline and closed with 4-0 Monocryl subcuticular sutures. Dressings were applied with Mastisol and one-half inch brown Steri-Strips. The patient tolerated the procedure without apparent complication. Sponge, needle and instrument counts were correct at the end of the case. MD PAMELA Barone/PHI /3:43 PM /7:14 AM JOELLE
== END | disposition home or self-care (01) ==
LOC: ESDC 12:12
PROVIDERS: ATTEND Surgery Trauma Surgery
DX: K35.3 Acute appendicitis with localized peritonitis (principal)
CPT/HCPCS: 00840; 44970; 88304; J0131; J0690; J1885; J2175; J2405; J3010